=== PATIENT | male | born 1960 | race Caucasian/White ===

== ENCOUNTER 2023-04-02 06:48 | Outpatient (REF) | payer BC, SELFPAY ==
[2023-04-02 11:21] LABS: MANUAL DIFF FLAG NO
[2023-04-02 11:47] LABS: Basophils Absolute Auto 0.1 X10*3/uL (0.0-0.2); Basophils Percent Auto 1.2 % (0-2); Eosinophils Absolute Auto 0.1 X10*3/uL (0.0-0.4); Eosinophils Percent Auto 2.3 % (0-4); Hematocrit 42.4 % (42.0-52.0); Imm Gran Abs Auto 0.01 X10*3/uL (0.00-0.03); Imm Gran Pct Auto 0.2 % (0.0-0.4); Lymphocytes Absolute Auto 1.9 X10*3/uL (1.2-4.9); Lymphocytes Percent Auto 32.8 % (20-40); Mean Platelet Volume 9.3 fL (9.4-12.4); Monocytes Absolute Auto 0.5 X10*3/uL (0.1-1.2); Neutrophils Absolute Auto 3.2 x10*3/uL (2.0-8.3); Neutrophils Percent Auto 55.5 % (45-73); Platelet Count 227 X10*3/uL (160-400); Red Blood Count 4.66 X10*6/uL (4.60-5.80); Red Cell Distribution Width 13.2 % (11.0-16.0); White Blood Count 5.7 X10*3/uL (4.8-10.8)
[2023-04-02 11:55] LABS: Anion Gap 10 (12-20); Blood Urea Nitrogen 16 mg/dL (9-16); Carbon Dioxide 25 mmol/L (22-29); Chloride 108 mmol/L (96-108); Cholesterol 215 mg/dL (<200); Estimated Glomerular Filt Rate > 60; Glucose Fasting 100 mg/dL (60-99); HDL Cholesterol 37 mg/dL (>40); LDL Cholesterol Calculated 135 mg/dL (<100); Potassium 3.9 mmol/L (3.3-5.1); Sodium 139 mmol/L (135-145); Triglycerides 217 mg/dL (<150)
[2023-04-02 12:23] LABS: Prostate Specific Antigen 0.75 ng/mL (<0.05-4.0)
== END 2023-04-02 06:49 | disposition home or self-care (01) ==
LOC: HO.HMGCLDS 06:48
PROVIDERS: PCP Internal Medicine; Visit Provider Internal Medicine
DX: R53.83 Other fatigue (principal); E78.5 Hyperlipidemia, unspecified; Z12.5 Encounter for screening for malignant neoplasm of prostate
CPT/HCPCS: 36415; 80051; 80061; 82565; 82947; 84153; 84520; 85025

== ENCOUNTER 2023-08-13 08:12 | Outpatient (AMB) | payer BC, SELFPAY ==
--- NOTE | 2023-08-13 08:26 | MHC.OFFVIS ---
Intake Vital Signs 08/13/23 08:30 Height 6 ft 3 in Weight 335 lb 1.642 oz BMI 41.9 BP 135/74 Blood Pressure Location Lt brachial Position Sitting Pulse 57 Intake Visit Reasons: Colonoscopy Screening Intake Note: Raymundo presents in the office as a colonoscopy screening. CC: He states that he is just due for a colonoscopy and not having any concerns. Allergies No Known Allergies Allergy (Verified 08/13/23 08:30) Medication List - Last Reconciled 08/13/23 by Akilah Regan PA-C betamethasone, augmented 0.05 % topical BID PRN famotidine 40 mg PO DAILY flecainide 50 mg PO BID hydrocortisone-iodoquinol 1-1 % appl topical BID PRN metoprolol tartrate 25 mg PO BID naproxen 500 mg PO BID HPI HPI Comments History of Present Illness Details A 62 y/o male AFIB- referred for screening colonoscopy- seen by ENT- dx acid reflux- cardioversion x 3- 2 years ago- has appointment cardiology this month-he has recently relocated from [facility]- He does not feel rapid heartbeat-of recent-however anxious for cardiology consult. He does not drink alcohol, has no issues with his bowel Appetite is good, he does get acid reflux, taking famotidine, prefers not to change medications at this time Has no nausea, vomiting, hematemesis, hematochezia, headaches, dizziness, shortness of breath, chest pain fever chills PFSH Medical History (Updated 08/13/23 @ 11:33 by Akilah Regan PA-C) Hx of basal cell carcinoma Surgical History Hx of knee surgery Hx of carpal tunnel repair Hx of rectal sphincterotomy Hx of colonoscopy Family History Paternal Uncle Colon cancer Father Prostate cancer Social History (Updated 08/13/23 @ 10:46 by Akilah Regan PA-C) Household Members Other:: - adult children Alcohol intake: former Current occupational status: employed Current occupation: [employer] [place] Review of Systems Const All systems reviewed & are unremarkable except as noted in HPI and below ENT Denies dysphagia Card Denies chest pain and Denies dyspnea Resp Denies dyspnea GI Denies abdominal pain, Denies hematochezia, Denies dysphagia, Reports heartburn, Denies nausea and Denies vomiting Physical Exam Vital Signs: Last Vital Signs Pulse 57 08/13/23 08:30 BP 135/74 08/13/23 08:30 BMI result Body Mass Index 41.9 Const General: cooperative, healthy appearing, comfortable and no acute distress Nutritional Appearance: overweight Orientation/consciousness: patient oriented x3 Limitations: no limitations Eyes Sclerae: sclerae normal Resp Effort & Inspection: normal respiratory effort and able to speak in complete sentences Auscultation: clear to auscultation bilaterally, no rales, no rhonchi and no wheezes Cardio Rate: regular rate (Nov) Rhythm: regular rhythm Heart sounds: S1 normal heart sound present and S2 normal heart sound present GI Palpation (GI): Soft to palpation and nontender Auscultation: normal bowel sounds Skin General skin exam: no rashes or lesions noted Neuro General: patient oriented x3 Extrem General: Yes full ROM Psych Appearance: grossly normal and well kempt Mental Status: mental status grossly normal Speech and movement: Normal speech and movement present Affect: normal affect Attitude: cooperative Thought process: Normal thought process present Thought content: Normal thought content present Insight: Good insight present (Psych) Judgement: Good judgement present (Psych) Assessment & Plan Assessment & Plan (1) Afib: Comment: Relocated to [place] has not been seen yet by Cardiology, seeing cardiology- end of month Code(s): I48.91 - Unspecified atrial fibrillation Plan: Cardiology history unclear-will await input (2) Encounter for screening colonoscopy: Code(s): Z12.11 - Encounter for screening for malignant neoplasm of colon Plan: Due for screening Colonoscopy- MG prep anersthesia/Cardiology authorized- AFIB (3) Acid reflux: Comment: Fairly new onset acid reflux-warrants further evaluation Code(s): K21.9 - Gastro-esophageal reflux disease without esophagitis Plan: EGD as well as screening colonoscopy Discussed procedures, risk, need for escort Plan EGD/Colonoscopy- bariatric bed-non urgent MG prep anesthesia/Cardiology authorized- AFIB-? meds Orders: Orders EGD/[place] Combo - GI Use Only Today K21.9 - Gastro-esophageal reflux disease without esophagitis, Z12.11 - Encounter for screening for malignant neoplasm of colon Medications: New bisacodyl (Dulcolax (bisacodyl)) Day before procedure, prep day Take 4 tablets by mouth upon awakening followed by large glass of water 20 mg (4 x 5 mg) PO ONCE 1 day 4 tabs 0RF colonoscopy prep Z12.11 - Encounter for screening for malignant neoplasm of colon polyethylene glycol 3350 (Miralax) Take as directed by mouth the day before your procedure. 238 grams PO ONCE 1 day PRN 238 grams 0RF laxative effect Patient Instructions: A very pleasant 62-year-old Gent AFib awaiting Cardiology consult due to relocation New onset acid reflux, EGD/Colonoscopy- we input from Cardiology being seen end of this month MG prep anesthesia/Cardiology authorized- AFIB-? meds He is aware to report any change in health status or medications No major barriers to understanding were identified This no is constructed using voice recognition software. While every effort has been made to ensure accuracy, metal roofer errors may be included Coding Level of Care Code New Pt Level 4 (81874) Diagnoses Afib I48.91 Encounter for screening colonoscopy Z12.11 Acid reflux K21.9 Time Spent (min) 40
[2023-08-13 08:30] VITALS: BP 135/74; PULSE 57; BMI 41.9
== END 2023-08-13 09:18 | disposition home or self-care (01) ==
PROVIDERS: PCP Internal Medicine; Referring Provider Internal Medicine; Visit Provider Physician Assistant
DX: I48.91 Unspecified atrial fibrillation (principal); Z12.11 Encounter for screening for malignant neoplasm of colon; K21.9 Gastro-esophageal reflux disease without esophagitis
CPT/HCPCS: 99204

== ENCOUNTER → 2023-08-13 08:12 | Outpatient (BNVA) | payer BC, SELFPAY | PROVIDERS: PCP Internal Medicine; Visit Provider Physician Assistant ==

== ENCOUNTER 2023-09-01 08:28 | Outpatient (AMB) | payer BC, SELFPAY ==
--- NOTE | 2023-09-01 08:58 | MHC.OFFVIS ---
Intake Vital Signs 09/01/23 08:59 Height 6 ft 3 in Weight 332 lb 14.368 oz BMI 41.6 BP 120/78 Blood Pressure Location Lt brachial Position Sitting Pulse 55 Intake Visit Reasons: NPV/HTN/AFIB/W. Mugg Intake Note: New patient Afib almost 30 year 1st time had it 2021 was the last afib (in [facility]) is aware when in afib Map And Chart Mounter Required: No Allergies No Known Allergies Allergy (Verified 08/13/23 08:30) Medication List - Last Reconciled 09/01/23 by Edwin Rodriguez MD betamethasone, augmented 0.05 % topical BID PRN famotidine 40 mg PO DAILY flecainide 50 mg PO BID metoprolol tartrate 25 mg PO BID naproxen 500 mg PO BID PRN polyethylene glycol 3350 (Miralax) 238 grams PO ONCE PRN 1 day HPI HPI Comments History of Present Illness Details Thank you for referring Raymundo in cardiology consultation today for management of atrial fibrillation. 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 He said he has longstanding history of atrial fibrillation for about 30 years getting about episodes of atrial fibrillation every 3-5 years without any clear trigger factors. Managed and would convert back to sinus rhythm. He would have short stents with blood thinners after age episode. In July 31 he had COVID and subsequently went to the hospital and was noted to have atrial fibrillation and discharged home after few days. However few days later he had recurrent atrial fibrillation since then he has been started on flecainide therapy and metoprolol therapy and has done well. He has had no recurrent episodes since then. He was treated with blood tennis for about 6 months and is been off anticoagulation now. His CHADSVASc score is 0. He has no history of heart failure, diabetes, hypertension, prior stroke or embolic events. He has been told about possible sleep apnea in the past but has not had any workup. He said he does have issues with weight and is trying to lose weight now. The last 2 weeks he has dropped 10 lb. He denies any lightheadedness, syncope. Denies any exertional chest pain, shortness of breath, orthopnea, PND, leg edema. [facility] Medical History Paroxysmal atrial fibrillation Afib Hx of basal cell carcinoma Surgical History Hx of knee surgery Hx of carpal tunnel repair Hx of rectal sphincterotomy Hx of colonoscopy Family History Paternal Uncle Colon cancer Father Prostate cancer Social History Household Members Other:: - adult children Alcohol intake: former Current occupational status: employed Current occupation: [employer] Review of Systems Const Denies chills, Denies daytime sleepiness, Denies fatigue, Denies fever(s), Denies frequent falls, Denies poor appetite, Denies snoring, Denies stops breathing during sleep, Denies weakness, Denies weight gain and Denies weight loss Eyes Denies loss of vision ENT Denies dizziness and Denies hearing loss Card Denies chest pain, Denies claudication, Denies leg edema, Denies lightheadedness, Denies palpitations, Denies dyspnea, Denies dyspnea on exertion and Denies orthopnea Resp Denies cough, Denies excessive phlegm production, Denies dyspnea, Denies dyspnea on exertion, Denies snoring and Denies wheezing GI Denies abdominal pain, Denies hematochezia, Denies change in bowel habits, Denies nausea and Denies vomiting Denies dysuria and Denies urinary frequency Musc Denies arthralgias, Denies muscle weakness, Denies numbness and Denies other (frequent falls) Skin/Breast Denies nail changes and Denies rash Neuro Denies Abnormal speech present, Denies dizziness, Denies frequent falls, Denies loss of vision, Denies memory loss, Denies numbness and Denies weakness Psych Denies depression and Denies memory loss Endo Denies fatigue and Denies palpitations Russell/Lymph Reports easy bruising and Reports other (anemia) Aller/Immun Denies wheezing Physical Exam Vital Signs: Last Vital Signs Pulse 55 09/01/23 08:59 BP 120/78 09/01/23 08:59 BMI result Body Mass Index 41.6 Const General: cooperative, comfortable, no acute distress, alert, awake and Physically active Nutritional Appearance: obese Orientation/consciousness: patient oriented x3 Limitations: no limitations HEENT Head: Yes normocephalic and Yes atraumatic Neck Neck: Yes trachea midline, Yes supple and Yes no JVD Resp Effort & Inspection: normal respiratory effort Auscultation: clear to auscultation bilaterally Cardio Jugular venous distension: no JVD Palpation: normal PMI Rate: regular rate Rhythm: regular rhythm Heart sounds: S1 normal heart sound present, S2 normal heart sound present, no click, no gallops, no murmurs and no rubs GI Inspection: Yes obesity Auscultation: normal bowel sounds Skin General skin exam: no rashes or lesions noted Neuro General: patient oriented x3 and no focal motor deficits Speech: No Abnormal speech present Extrem General: Yes no clubbing, cyanosis or edema Psych Appearance: grossly normal Office Procedures EKG Details: EKG shows sinus bradycardia with first-degree AV block otherwise normal EKG with normal axis and normal intervals 66130-[id number], Complete Assessment & Plan Assessment & Plan (1) Paroxysmal atrial fibrillation: Comment: Has been cardioverted 3-4 times in the past Code(s): I48.0 - Paroxysmal atrial fibrillation Plan: Highly symptomatic paroxysmal atrial fibrillation, longstanding with intermittent episodes every few years. Currently being maintained with antiarrhythmic with flecainide and metoprolol. He has no symptoms suggestive of obstructive coronary artery disease. 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 We discussed about pathophysiology of atrial fibrillation management. We discussed about rhythm control versus rate control. Given that he is done well with rhythm control approach will continue pursue rhythm control approach. Various treatment options were discussed. We also discussed about pill in the pocket approach if he has recurrent atrial fibrillation to take an additional 150 mg of flecainide. Always require a rate lowering medication with flecainide therapy and will continue metoprolol. CHADSVASc score of 0 and he does not require anticoagulation therapy. Will obtain an echocardiogram to assess for left ventricular systolic function, size as well as hypertrophy of the left ventricular wall as well as biatrial chamber enlargement or valvular function. This test will be scheduled in near future. We discussed about risk factor modification with continued aggressive weight loss program as well considering workup for sleep apnea. He understands and agrees. Will follow up in the clinic in 6 months for EKG and in 1 year with me. Orders: Orders CA echo transthoracic complete Today I48.0 - Paroxysmal atrial fibrillation Coding Level of Care Code New Pt Level 4 (61197) Diagnoses Paroxysmal atrial fibrillation I48.0 CPT Codes EKG - CPT: 32146-Alkbdizzkyngkatem, Complete ([id number])
[2023-09-01 08:59] VITALS: BP 120/78; PULSE 55; BMI 41.6
== END 2023-09-01 09:40 | disposition home or self-care (01) ==
PROVIDERS: PCP Internal Medicine; Visit Provider Internal Medicine Cardiovascular Disease
DX: I48.0 Paroxysmal atrial fibrillation (principal)
CPT/HCPCS: 93010; 99204

== ENCOUNTER → 2023-09-01 08:28 | Outpatient (BNVA) | payer BC, SELFPAY | PROVIDERS: PCP Internal Medicine; Visit Provider Internal Medicine Cardiovascular Disease | DX: I48.0 Paroxysmal atrial fibrillation (principal) | CPT/HCPCS: 93005 ==

== ENCOUNTER → 2023-10-13 14:57 | Outpatient (REF) | payer BC, SELFPAY ==
--- NOTE | 2023-10-13 15:11 | CA_ITS ---
Transthoracic Echocardiogram Patient (Last, First, Middle): Raymundo Fields P Gender: Male Date of : 1960 Age: 63 Procedure Date: 10/13/2023 Procedure Type: Transthoracic Echocardiogram Location: OP Height: 190.5 cm Weight: 140.62 kg BSA: 2.64 m2 Heart Rate: bpm BP: 110 / 70 mmHg Cafeteria Team Leader: BARBER Referring MD: Edwin Rodriguez MD Symptoms: I48.0 - Paroxysmal atrial fibrillation Study Quality: Adequate ECG Rhythm: Sinus Conclusions: - The left ventricular systolic function is normal. The calculated ejection fraction is 62% by biplane method. - The left atrium is mildly dilated. The right atrium is moderately dilated. - No obvious valvular pathology seen on this study. - There is mild dilatation of the ascending aorta measuring 4.10 cm. Findings Left Ventricle Normal left ventricular cavity size. There is mildly increased left ventricular wall thickness. The left ventricular systolic function is normal. The calculated ejection fraction is 62% by biplane method. There is no evidence of regional wall motion abnormalities. Diastolic function is normal for age. LV peak GLS -24.1%. Right Ventricle Mildly increased right ventricular cavity size. There is normal right ventricular systolic function. Atria The left atrium is mildly dilated. The right atrium is moderately dilated. Aortic Valve There is a normal trileaflet aortic valve. There is no aortic valve stenosis. Trace to mild aortic regurgitation. Mitral Valve The mitral valve appears normal. There is no mitral valve regurgitation. There is no mitral valve stenosis. Pulmonic Valve The pulmonic valve is likely normal. Tricuspid Valve There is trace tricuspid valve regurgitation. There is no evidence of pulmonary hypertension. Great Vessels The aortic arch is normal in size. There is mild dilatation of the ascending aorta measuring 4.10 cm. Venous The inferior vena cava is normal in size and collapses greater than 50% with inspiration. Pericardium/Pleural There is no evidence of pericardial effusion. Prior Study Comparison No prior study available for comparison. Recommendations, Care & Conclusions No obvious valvular pathology seen on this study. Measurements 2D Linear Measurements IVSd: 1.12 0.6-0.9/0.6-1.0 cm LVIDd: 6.21 3.9-5.3/4.2-5.9 cm LVIDd Index: 2.35 2.4-3.2/2.2-3.1 cm/m2 LVIDs: 3.83 2.0-3.6 cm LVPWd: 1.06 0.7-1.1 cm LA Diam: 4.00 2.7-3.8/3.0-4.0 cm LAIDs Index: 1.52 1.5-2.3 cm/m2 LV Mass: 365.15 67-162/88-224 g LV Mass Index: 138.31 43-95/49-115 g/m2 LVOT Diam: 2.50 3.0+(-)1.3 cm RVOT Diam: 16.00 1.7-2.3 cm 2D Systolic Function EF 4C: 63.80 >55% EF 2C: 60.40 >55% EF BiP: 61.80 >55% Mitral Valve MV Pk E: 0.89 MV PK A: 0.71 MV Decel Time: 240.00 E/A: 1.30 E'Lateral: 11.50 E'Medial: 7.51 E/E' Med: 11.80 E/E' Lat: 7.70 PHT: 70.00 MVA PHT: 3.14 Decel Orange: 3.70 Aortic Valve AoV Pk Daniel: 1.87 AoV Mn Daniel: 1.17 AoV VTI: 0.49 AoV Pk Grad: 14.00 Aov Mn Grad: 7.00 REMEDIOS Cont.VTI: 3.74 AI Pk Daniel: 3.98 AI Orange: 1.65 LVOT LVOT Pk Daniel: 1.54 LVOT Mn Daniel: 0.92 LVOT VTI: 0.37 LVOT Pk Grad: 9.00 LVOT Mn Grad: 4.00 LVOT Diam: 2.50 LVOT Area: 4.91 Diastolic Function MV Pk E: 0.89 MV Pk A: 0.71 E/A: 1.30 E'Medial: 7.51 E/E' Med: 11.80 E' Laterial: 11.50 E/E' Lat: 7.70 Right Ventricle TAPSE (mm): 35.00 TVS' Daniel: 19.00 Tricuspid Valve TR Pk Daniel: 2.00 RVOT: 16.00 RA Press: 3.00 RVSP: 19.00 Great Vessels Aorta Ao Asc: 4.10 2.1-3.4 cm Ao Arch: 3.50 Updated in Other Vendor System with Status of Final Bo Saleh MD electronically signed on 10/14/2023 7:52:45 AM with status of Final
== END ==
LOC: HO.CARD 14:57
PROVIDERS: PCP Internal Medicine; Visit Provider Internal Medicine Cardiovascular Disease
DX: I48.0 Paroxysmal atrial fibrillation (principal)
CPT/HCPCS: 93306; 93356

== ENCOUNTER → 2023-10-13 15:11 | Outpatient (BNV) | payer BC, SELFPAY | PROVIDERS: PCP Internal Medicine; Visit Provider Internal Medicine | DX: I48.0 Paroxysmal atrial fibrillation (principal) | CPT/HCPCS: 93306 ==

== ENCOUNTER 2023-12-04 15:22 | Outpatient (REF) | payer BC, SELFPAY ==
--- NOTE | ~2023-12-04 | US_ITS ---
EXAMINATION: US VENOUS ULTRASOUND WITH DOPPLER LOWER EXTREMITY, RIGHT CLINICAL INFORMATION: Right leg pain and swelling. COMPARISON: None available. TECHNIQUE: Ultrasound of the deep veins is performed from the hip to the calf with compression sonography and color and pulse Doppler assessment. Spectral analysis with color-flow imaging is performed. FINDINGS: There is normal venous compression and respiratory variation and augmented flow. The visualized common femoral vein, superficial femoral vein, profunda femoral vein, popliteal vein, and the trifurcation region shows no evidence of deep venous thrombosis. The superficial veins seen along the anterior chaves are patent and compressible. There is fluid identified within the proximal to mid calf concerning for underlying muscle injury. If the patient's symptoms persist, followup ultrasound in 5 days 7 days might be of value to exclude proximal propagation from a non-visualized calf vein. US/US venous duplex LE RT IMPRESSION: No DVT demonstrated in the right lower extremity. Fluid identified within the proximal to mid calf concerning for underlying muscle injury. MRI could be performed for further characterization.
== END 2023-12-04 15:23 | disposition home or self-care (01) ==
LOC: HO.XRAY 15:22
PROVIDERS: PCP Internal Medicine; Visit Provider Internal Medicine
DX: R60.0 Localized edema (principal)
CPT/HCPCS: 93971

== ENCOUNTER 2023-12-10 07:44 | Day surgery (SDC) | payer BC, SELFPAY ==
[2023-12-08 12:06] VITALS: BMI 41.5
--- NOTE | 2023-12-08 15:16 | HO.ANESPROP2 ---
HPI - Anesthesia Eval Consult details Narrative: 63yo M for Upper Endoscopy and Colonoscopy Rare Afib x 30 years. Seen by [facility] cardiology 08/2023 as new patient. No indication for anticoag. EKG and echo ok. Low risk for endo per cardiology. PMF Active Problems Active Problems: All Active Problems Paroxysmal atrial fibrillation (Acute) Acid reflux (Acute) Encounter for screening colonoscopy (Acute) Past Medical History Medical History Paroxysmal atrial fibrillation Afib Hx of basal cell carcinoma Family History Family History Paternal Uncle Colon cancer Father Prostate cancer Surgical History Surgical History (Updated 12/16/23 @ 11:11 by Qian Alvarado) History of esophagogastroduodenoscopy (EGD) Hx of knee surgery Hx of carpal tunnel repair Hx of rectal sphincterotomy Hx of colonoscopy Social History Social History Household Members Other:: - adult children Alcohol intake: former Patient Tobacco Use Status: Former Tobacco user Quit Date: 2 1/2 years Second Hand Smoke Exposure: No Current occupational status: employed Current occupation: [employer] Allergies Allergy/AdvReac Type Severity Reaction Status Date / Time No Known Allergies Allergy Verified 12/10/23 08:41 Home Medications ?Medication ?Instructions ?Recorded ?Confirmed ?Last Taken ?Type famotidine 40 mg tablet 40 mg PO BEDTIME 08/13/23 12/10/23 Unknown History Exam Height,Weight and Vital Signs: Height 6 ft 3 in Weight 150.593 kg Narrative Narrative: EKG 08/2023 sinus bradycardia with first-degree AV block otherwise normal EKG with normal axis and normal intervals ECHO 10/2023 Conclusions: - The left ventricular systolic function is normal. The calculated ejection fraction is 62% by biplane method. - The left atrium is mildly dilated. The right atrium is moderately dilated. - No obvious valvular pathology seen on this study. - There is mild dilatation of the ascending aorta measuring 4.10 cm. Assessment and Plan Assessment Anesthesia Assessment: Chart Reviewed
[2023-12-10 08:33] VITALS: BP 128/70; PULSE 54; RESP 18; TEMP 36.7; O2SAT 96; BMI 39.1
[2023-12-10 08:38] VITALS: BMI 39.1
[2023-12-10] MEDS: Lactated Ringers 1,000 ML 100 ML IVCONT (08:54)
--- NOTE | 2023-12-10 09:23 | P.CONAN_ITS ---
[facility] Active Problems Active Problems: All Active Problems Paroxysmal atrial fibrillation (Acute) Acid reflux (Acute) Encounter for screening colonoscopy (Acute) Past Medical History Medical History Paroxysmal atrial fibrillation Afib Hx of basal cell carcinoma Functional capacity: independent ambulation Family History Family History Paternal Uncle Colon cancer Father Prostate cancer Surgical History Surgical History Hx of knee surgery Hx of carpal tunnel repair Hx of rectal sphincterotomy Hx of colonoscopy History of Problems with Anesthesia: No Social History Social History Household Members Other:: - adult children Alcohol intake: former Patient Tobacco Use Status: Former Tobacco user Quit Date: 2 1/2 years Second Hand Smoke Exposure: No Use of substances other than those prescribed or required for medical reasons: No Are you DNR?: No Advance Directives: No Advance Directives Information Provided: Yes Current occupational status: employed Current occupation: [employer] Allergies Allergy/AdvReac Type Severity Reaction Status Date / Time No Known Allergies Allergy Verified 12/10/23 08:41 Active Medications: Current Medications Lactated Ringer's (Lr) 1,000 mls @ 100 mls/hr IVCONT .Q10H PAWEL Last Admin: 12/10/23 08:54 Dose: 100 mls/hr Home Medications ?Medication ?Instructions ?Recorded ?Confirmed ?Last Taken ?Type famotidine 40 mg tablet 40 mg PO BEDTIME 08/13/23 12/10/23 Unknown History Exam Height,Weight and Vital Signs: Height 6 ft 3 in Weight 141.974 kg Last Vital Signs Temp 98.0 F 12/10/23 08:33 Pulse 54 12/10/23 08:33 Resp 18 12/10/23 08:33 BP 128/70 12/10/23 08:33 Pulse Ox 96 12/10/23 08:33 O2 Del Method Room Air 12/10/23 08:33 Airway Mallampati Class: II TM Dist: >3cm Neck ROM: Full Heart: RRR Lungs: CTA Assessment and Plan Assessment Anesthesia Assessment: Anesthesia Plan Discussed Final Anesthetic Review History of Problems with Anesthesia: No NPO: Yes ASA Class: III Final Preanesthetic Review: Meds/Allgs Chart Reviewed, Consent Obtained/Reviewed and Anes Risks/Benef Reviewed Patient Risk: Intermediate Procedure Risk: Low Anesthetic Plan Anesthetic Plan: MAC: Disposition: Standard PACU
--- NOTE | 2023-12-10 09:39 | MHC.SHP ---
Pre-Procedural Eval Section A - 24 Hr Update-Section A only Date of Service: 12/10/23 Section B - Complete if H&P > 30 days Chief Complaint: gerd,afib,screening Details of Present Illness: Paternal Uncle Colon cancer Relevant Family History (Specify if Yes): Yes Relevant Social History: None Present Medications: see Short Stay Collaborative assessment Medical History: Significant History (Paroxysmal atrial fibrillation Afib Hx of basal cell carcinoma) History of Previous Operations: Relevant previous surgery/procedure and date(s) (Hx of knee surgery Hx of carpal tunnel repair Hx of rectal sphincterotomy Hx of colonoscopy) Allergies: Allergies Allergy/AdvReac Type Severity Reaction Status Date / Time No Known Allergies Allergy Verified 12/10/23 08:41 Review of Systems Sugical H&P ROS: Negative: Constitution, Cardiovascular, Respiratory, Neurological, Psychiatric, Hem-Onc, Allergic/Immunologic, Gastrointestinal, Genitourinary, Musculoskeletal, Integumentary, Endocrine and Eyes/Ears/Nose/Throat Exam Surgical H&P Exam: Normal: HEENT, Normal: Heart, Normal: Lungs, Normal: Extremities, Normal: Abdomen, Normal: Skin and Normal: Neurological Plan Diagnosis/Plan: Unchanged I have reviewed the history and physical and performed a pertinent physical examination on my patient. No changes have occurred unless specified. Time Spent With Patient Time: Total time managing care of this patient today ____ minutes.
--- NOTE | 2023-12-10 10:40 | P.OP_ITS ---
Operative Note Operative Note Date of Service: 12/10/23 Narrative: Operative Information Procedure Description: EGD, Colonoscopy Indication: GERD, Colon screening Anesthesia: MAC FLEXIBLE TRANSORAL UPPER GASTROINTESTINAL ENDOSCOPY AND COLONOSCOPY PROCEDURE NOTE UPPER ENDOSCOPY Consent: Indications for the procedure and potential complications of bleeding, perforation, reaction to medications and missed diagnosis were discussed with the patient and informed consent was obtained. Instrument: Olympus GIF H 190 J mid size upper endoscope Monitoring: Vital signs and clinical assessment, continuous EKG monitoring, Pulse oximetry, Carbon Dioxide monitoring and blood pressure monitoring were done throughout the procedure. Procedure: The patient was placed in the left lateral decubitis position and pre-procedure medications were administered and a bite block was placed. The endoscope was inserted into the mouth and advanced under direct vision to the third part of duodenum. A careful inspection was made as the upper endoscope was withdrawn including a retroflexed examination of the proximal stomach; Findings and interventions are described below. Findings: Larynx:normal Esophagus: GE junction at 40 cm, diaphragm hiatus at 40 cm, some bogginess and erythema at GEJ, bx taken Stomach: erythema around pylorus with few small erosions. Biopsies were obtained. Grade 2 flap valve on retroflexed examination of the cardia. Duodenum: Normal bulb and descending duodenum, Intervention: Biopsies as noted above, COLONOSCOPY Instrument: Olympus variable stiffness ADULT scope 190L Colonoscopy Monitoring: Vital signs and clinical assessment, continuous EKG monitoring, Pulse oximetry, Carbon Dioxide monitoring and blood pressure monitoring were done throughout the procedure. Colon withdrawal time was 11 minutes. Procedure: The patient was placed in the left lateral decubitis position and pre-procedure medications were administered. After a digital rectal examination of the ano-rectum, the video colonoscope was inserted into the rectum and advanced through the colon to the cecum/TI. The colonoscope was slowly withdrawn in a retrograde panoramic fashion and the colon mucosa was carefully examined including a retroflexed view of the rectum. Findings and interventions are described below. Procedure Difficulty:moderate Findings: Terminal Ileum-normal Cecum:normal Ascending Colon: normal Transverse Colon -normal Descending Colon:normal Sigmoid Colon: normal Rectum: Retroflexion with small internal hemorrhoids, grade I Anorectum - normal Colon preparation: [place] Bowel Preparation Scale Right colon; 2 Transverse colon: 2 Left colon; 1-2 (0 = Unprepared colon segment with mucosa not seen due to solid stool that cannot be cleared. 1 = Portion of mucosa of the colon segment seen, but other areas of the colon segment not well seen due to staining, residual stool and/or opaque liquid. 2 = Minor amount of residual staining, small fragments of stool and/or opaque liquid, but mucosa of colon segment seen well. 3 = Entire mucosa of colon segment seen well with no residual staining, small fragments of stool or opaque liquid) Impression and Post Procedure Diagnosis: Endoscopy Findings: esophagitis mild gastritis Colonoscopy Findings: internal hemorrhoids fair prep Plan: Await Pathology results Repeat Colonoscopy in 5 years due to prep or earlier if clinically indicated High fiber diet leaflet avoid straining at stool, epsom salts and sitz bath, anusol supps or cream GERD precautions Above findings were reviewed with the patient and relevant handouts were provided if indicated.
[2023-12-10 10:47] VITALS: BP 131/65; PULSE 65; RESP 16; TEMP 36.5; O2SAT 96
[2023-12-10 11:02] VITALS: BP 142/63; PULSE 52; RESP 18; TEMP 36.5; O2SAT 95
--- NOTE | 2023-12-10 12:13 | HO.POSTANES ---
Post Anesthesia Evaluation Post Anesthesia Evaluation Date of Service: 12/10/23 Vital Signs: Vital Signs Temp Pulse Resp BP Pulse Ox O2 Del Method 12/10/23 11:02 97.7 F 52 18 142/63 H 95 12/10/23 10:47 97.7 F 65 16 131/65 96 Room Air 12/10/23 08:33 98.0 F 54 18 128/70 96 Room Air Anesthesia: Monitored Mental Status: Awake Pain Control: Satisfactory Nausea/Vomiting: None Hydration: Adequate Anesthesia-Related Issues: No Anes. Related Issues
== END 2023-12-10 12:04 | disposition home or self-care (01) ==
PROVIDERS: PCP Internal Medicine; Visit Provider Internal Medicine Gastroenterology
PROC: (CPT 45378; principal; 2023-12-10 11:10)
DX: Z12.11 Encounter for screening for malignant neoplasm of colon (principal); K64.0 First degree hemorrhoids; K21.00 Gastro-esophageal reflux disease with esophagitis, without bleeding; K29.70 Gastritis, unspecified, without bleeding; I48.0 Paroxysmal atrial fibrillation
CPT/HCPCS: 45378; 43239; 88305; 88313; 88342; J2704

== ENCOUNTER → 2023-12-10 07:44 | Outpatient (BNV) | payer BC, SELFPAY | PROVIDERS: PCP Internal Medicine; Visit Provider Internal Medicine Gastroenterology | DX: Z12.11 Encounter for screening for malignant neoplasm of colon (principal); K64.8 Other hemorrhoids; K21.00 Gastro-esophageal reflux disease with esophagitis, without bleeding; K29.70 Gastritis, unspecified, without bleeding | CPT/HCPCS: 43239; 45378 ==

== ENCOUNTER → 2024-03-01 09:18 | Outpatient (BNVA) | payer BC, SELFPAY | PROVIDERS: PCP Internal Medicine; Visit Provider Internal Medicine Cardiovascular Disease ==

== ENCOUNTER 2024-05-08 01:29 | Emergency (ER) | payer BC, SELFPAY ==
[2024-05-08] VITALS (8 sets, daily range): BP systolic 104–150; BP diastolic 52–80; PULSE 60–150; RESP 12–16; TEMP 36.6–36.8; O2SAT 93–95; BMI 29.9
--- NOTE | 2024-05-08 | ECG_ITS ---
Test Reason : AFIB Blood Pressure : / mmHG Vent. Rate : 078 BPM Atrial Rate : 000 BPM P-R Int : 000 ms QRS Dur : 110 ms QT Int : 384 ms P-R-T Axes : 000 -04 025 degrees QTc Int : 437 ms Atrial fibrillation Abnormal ECG No previous ECGs available Referred By: Generic ED Physician Electronically Signed By:ELIS LAUREANO
--- NOTE | ~2024-05-08 | XR_ITS ---
EXAMINATION: XR CHEST CLINICAL INFORMATION: Atrial fibrillation. COMPARISON: None available. TECHNIQUE: Frontal view of the chest was obtained. FINDINGS: The cardiomediastinal silhouette is within normal limits. There is no focal lung consolidation or evidence for significant pleural effusion. The bony structures and soft tissues are unremarkable. XR/XR chest 1V IMPRESSION: No acute cardiopulmonary process. Electronically signed by: Edgardo Villanueva MD 05/08/2024 06:42 AM EDT
[2024-05-08 01:48] LABS: MANUAL DIFF FLAG NO
[2024-05-08 01:50] LABS: Basophils Absolute Auto 0.1 X10*3/uL (0.0-0.2); Basophils Percent Auto 1.1 % (0-2); Eosinophils Absolute Auto 0.2 X10*3/uL (0.0-0.4); Eosinophils Percent Auto 2.8 % (0-4); Hematocrit 41.3 % (42.0-52.0); Imm Gran Abs Auto 0.01 X10*3/uL (0.00-0.03); Imm Gran Pct Auto 0.2 % (0.0-0.4); Lymphocytes Absolute Auto 2.3 X10*3/uL (1.2-4.9); Lymphocytes Percent Auto 36.3 % (20-40); Mean Corpuscular HGB Conc 33.9 g/dl (31.0-36.0); Mean Corpuscular Hemoglobin 30.3 pg (27.0-33.0); Mean Corpuscular Volume 89.4 fL (80.0-98.0); Mean Platelet Volume 8.7 fL (9.4-12.4); Monocytes Absolute Auto 0.6 X10*3/uL (0.1-1.2); Monocytes Percent Auto 8.5 % (2-11); Neutrophils Absolute Auto 3.3 x10*3/uL (2.0-8.3); Neutrophils Percent Auto 51.1 % (45-73); Platelet Count 219 X10*3/uL (160-400); Red Blood Count 4.62 X10*6/uL (4.60-5.80); Red Cell Distribution Width 13.1 % (11.0-16.0); White Blood Count 6.4 X10*3/uL (4.8-10.8)
[2024-05-08 02:02] LABS: Alanine Aminotransferase 25 U/L (0-40); Alkaline Phosphatase 64 U/L (39-117); Anion Gap 14 (12-20); Aspartate Amino Transferase 18 U/L (5-37); Bilirubin Total 0.1 mg/dL (0.0-1.0); Blood Urea Nitrogen 15 mg/dL (9-16); Calcium 9.6 mg/dL (8.4-10.2); Carbon Dioxide 22 mmol/L (22-29); Chloride 110 mmol/L (96-108); Creatinine Clr Calc Pharmacy 113.4; Estimated Glomerular Filt Rate > 60; Glucose Random 127 mg/dL (60-115); Potassium 3.8 mmol/L (3.3-5.1); Sodium 142 mmol/L (135-145); Total Protein 7.3 g/dL (6.5-8.0)
[2024-05-08 02:16] LABS: Troponin-I High Sensitivity < 2.7 ng/L (<3.5-35.0)
--- NOTE | 2024-05-08 05:02 | ED_ITS ---
HPI - Arrhythmia/Palpitations General Chief Complaint: Arrhythmia/Palpitations Stated Complaint: AFIB Time Seen by Provider: 05/08/24 05:02 History of Present Illness ED Provider: Colleen SIMONS narrative: The patient is a 63-year-old male who has a long history of paroxysmal atrial fibrillation. He says he was 34 years old when he 1st had problems with paroxysmal atrial fibrillation. He is on metoprolol and flecainide. He is not on anticoagulation. He says his last episode of atrial fibrillation was almost 3 years ago. He says that this morning he woke up and felt palpitations consistent with atrial fibrillation and he called 911. No significant chest pain or shortness of breath. Related Data Home Medications ?Medication ?Instructions ?Recorded ?Confirmed famotidine 40 mg tablet 40 mg PO BEDTIME 08/13/23 12/10/23 Previous Rx's ?Medication ?Instructions ?Recorded flecainide 50 mg tablet 50 mg PO BID 90 days #180 tabs 10/08/23 metoprolol tartrate 25 mg tablet 25 mg PO BID 90 days #180 tabs 10/08/23 Allergies Allergy/AdvReac Type Severity Reaction Status Date / Time No Known Allergies Allergy Verified 05/08/24 01:37 Review of Systems 2 Review of Systems: Yes all other systems are reviewed and are negative PMFSH Past Medical History Medical History (Updated 05/08/24 @ 07:46 by Ziyad Macias MD) Paroxysmal atrial fibrillation Afib Hx of basal cell carcinoma Surgical History (Updated 12/16/23 @ 11:11 by Qian Alvarado) History of esophagogastroduodenoscopy (EGD) Hx of knee surgery Hx of carpal tunnel repair Hx of rectal sphincterotomy Hx of colonoscopy Family History Family History Paternal Uncle Colon cancer Father Prostate cancer Social History Social History Household Members Other:: - adult children Alcohol intake: former Patient Tobacco Use Status: Former Tobacco user Smoked in Last 30 Days: No Second Hand Smoke Exposure: No Use of substances other than those prescribed or required for medical reasons: No Advance Directives: No Advance Directives Information Provided: No Do you have a plan to hurt others: No Plan Current occupational status: employed Current occupation: [employer] Physical Exam 2 Vital Signs: Vital Signs: Last Vital Signs Temp 98.2 F 05/08/24 05:34 Pulse 78 05/08/24 07:29 Resp 12 05/08/24 05:34 BP 107/71 05/08/24 07:29 Pulse Ox 95 05/08/24 05:34 O2 Del Method Room Air 05/08/24 05:34 BMI result Body Mass Index 29.9 Const: Other: The patient has a large 63-year-old male who was awake and alert. He does not appear in any distress. He is pleasant and cooperative. HEENT: Other: Face is symmetrical. Mucous membranes moist. Eyes: General: appearance normal, both eyes and all related structures Neck: Neck: Yes no JVD Resp: Effort & Inspection: normal respiratory effort Auscultation: clear to auscultation bilaterally Cardio: Other: The patient has an irregular rate and rhythm. He is not tachycardic however. GI: Other: Abdomen is soft and nontender Skin: Other: Skin is dry and unremarkable Neuro: Other: The patient is awake, alert, pleasant, cooperative. Cranial nerves are grossly intact. He moves his extremities normally and appropriately. He is neurologically intact. Extrem: Other: No calf swelling or tenderness Medications Administered Discontinued Medications Generic Name Dose Route Start Last Admin Trade Name Freq PRN Reason Stop Dose Admin Flecainide Acetate 300 mg 05/08/24 07:12 05/08/24 07:27 Flecainide Acetate 50 Mg Tablet PO 05/08/24 07:13 300 mg ONCE ONE Administration Metoprolol Tartrate 5 mg 05/08/24 05:09 05/08/24 05:38 Metoprolol Tartrate 5 Mg/5 Ml Vial IVPUSH 05/08/24 05:10 5 mg ONCE ONE Administration Protocol Metoprolol Tartrate 5 mg 05/08/24 06:18 05/08/24 06:43 Metoprolol Tartrate 5 Mg/5 Ml Vial IVPUSH 05/08/24 06:19 5 mg ONCE ONE Administration Protocol Metoprolol Tartrate 25 mg 05/08/24 07:14 05/08/24 07:29 Metoprolol Tartrate 25 Mg Tablet PO 05/08/24 07:15 25 mg ONCE ONE Administration Protocol Medical Decision Making Medical Decision Making MDM Narrative: The patient is a 63-year-old male with a very long history of paroxysmal atrial fibrillation. He seems to has been well-maintained in sinus rhythm on metoprolol tartrate 25 mg b.i.d. and flecainide 50 mg b.i.d.. [facility] he thought he was in AFib. His heart rate may have been rapid with paramedics but it was normal by the time he got to the hospital. The patient therefore presented in rate controlled AFib. He says he is normally in sinus rhythm. He was given 2 doses of IV metoprolol to see if this might help him convert but this did not work. I ultimately spoke with Dr. Saleh of Cardiology. We will try 300 mg of oral flecainide to see if this helps convert. He was also given his morning dose of 25 mg of oral metoprolol tartrate. I will be signing the patient out to my colleague at change of shift pending the patient's response to flecainide. Lab Data 05/08/24 01:43 05/08/24 01:43 Labs: Lab Results 05/08/24 05/08/24 Range/Units 01:43 04:38 WBC 6.4 (4.8-10.8) X10*3/uL RBC 4.62 (4.60-5.80) X10*6/uL Hgb 14.0 (14.0-18.0) g/dl Hct 41.3 L (42.0-52.0) % MCV 89.4 (80.0-98.0) fL MCH 30.3 (27.0-33.0) pg MCHC 33.9 (31.0-36.0) g/dl RDW 13.1 (11.0-16.0) % Plt Count 219 (160-400) X10*3/uL MPV 8.7 L (9.4-12.4) fL Immature Gran % (Auto) 0.2 (0.0-0.4) % Neut % (Auto) 51.1 (45-73) % Lymph % (Auto) 36.3 (20-40) % [place] % (Auto) 8.5 (2-11) % Eos % (Auto) 2.8 (0-4) % Baso % (Auto) 1.1 (0-2) % Lymph # (Auto) 2.3 (1.2-4.9) X10*3/uL [place] # (Auto) 0.6 (0.1-1.2) X10*3/uL Eos # (Auto) 0.2 (0.0-0.4) X10*3/uL Baso # (Auto) 0.1 (0.0-0.2) X10*3/uL Abs Immat Gran (auto) 0.01 (0.00-0.03) X10*3/uL Absolute Neuts (auto) 3.3 (2.0-8.3) x10*3/uL Absolute Nucleated RBC 0.000 (0.0-0.012) X10*3/uL Nucleated RBC % (auto) 0.0 (0.0-0.2) /100WBC Sodium 142 (135-145) mmol/L Potassium 3.8 (3.3-5.1) mmol/L Chloride 110 H (96-108) mmol/L Carbon Dioxide 22 (22-29) mmol/L Anion Gap 14 (12-20) BUN 15 (9-16) mg/dL Creatinine 0.91 (0.5-1.4) mg/dL Estim Creat Clear Calc 113.4 Estimated GFR > 60 Random Glucose 127 H (60-115) mg/dL Calcium 9.6 (8.4-10.2) mg/dL Total Bilirubin 0.1 (0.0-1.0) mg/dL AST 18 (5-37) U/L ALT 25 (0-40) U/L Alkaline Phosphatase 64 (39-117) U/L Troponin I High Sens < 2.7 9.1 D (<3.5-35.0) ng/L Total Protein 7.3 (6.5-8.0) g/dL Albumin 4.0 (3.5-5.0) g/dL Independent Interpretation I performed an independent interpretation of an: EKG Interpretation: EKG at 01:30 shows atrial fibrillation at 78 beats per minute. No acute ischemic changes. Discharge Plan Discharge Clinical Impression: Paroxysmal atrial fibrillation Patient Disposition: Still a Patient Prescriptions: No Action flecainide 50 mg tablet 50 mg PO BID 90 Days Qty: 180 3RF metoprolol tartrate 25 mg tablet 25 mg PO BID 90 Days Qty: 180 3RF famotidine 40 mg tablet 40 mg PO BEDTIME Print Language: [place]
[2024-05-08 05:04] LABS: Troponin-I High Sensitivity 9.1 ng/L (<3.5-35.0)
[2024-05-08] MEDS: Metoprolol Tartrate 5 MG/5 ML VIAL IVPUSH ×2 (05:38→06:43)
[2024-05-08] MEDS: Flecainide Acetate 50 MG TABLET 300 MG PO (07:27)
[2024-05-08] MEDS: Metoprolol Tartrate 25 MG TABLET PO (07:29)
--- NOTE | 2024-05-08 07:31 | PC.NURSE ---
pt seems to remain in afib - HR fluctuating between 80-100bpm. pt denies chest pain but verbalizes some mild palpitations. pt denies sob. states palpitations woke him up from his sleep where he called 911 to be able evaluated. pt medicated per provider order. effectiveness pending. plan of care ongoing. call le placed within reach.
--- NOTE | 2024-05-08 12:33 | PC.NURSE ---
pt to CT at this time.
== END 2024-05-08 13:27 | disposition home or self-care (01) ==
PROVIDERS: Emergency Medicine; Emergency Provider Emergency Medicine Emergency Medical Services; PCP Internal Medicine
DX: I48.0 Paroxysmal atrial fibrillation (principal); R00.2 Palpitations; Z79.899 Other long term (current) drug therapy
CPT/HCPCS: 36415; 71045; 80053; 84484; 85025; 93005; 96374; 96376; 99285

== ENCOUNTER 2024-05-09 12:50 | Outpatient (AMB) | payer BC, SELFPAY ==
--- NOTE | 2024-05-09 12:54 | MHC.OFFVIS ---
Vital Signs 05/09/24 12:55 Height 6 ft 3 in Weight 328 lb 7.82 oz BMI 41.1 BP 116/66 Blood Pressure Location Lt brachial Position Sitting Pulse 69 Intake Visit Reasons: f/up [facility] er Intake Note: Follow-up was in the ED with afib Casino Worker Required: No Allergies No Known Allergies Allergy (Verified 05/08/24 01:37) Medication List - Last Reconciled 05/09/24 by Edwin Rodriguez MD famotidine 40 mg PO BEDTIME flecainide 50 mg PO BID 90 days metoprolol tartrate 25 mg PO BID 90 days HPI Comments Details: Raymundo comes for follow-up. He is coming for an urgent visit had over the weekend he developed atrial fibrillation. He said he had missed his dose of flecainide and went to sleep and was tossing and turning around because of his low back pain. When he woke up he notice that he was in AFib. He then took his flecainide remained in atrial fibrillation called 911. When he came to the emergency room was in atrial fibrillation, waited 5 hours to be seen. Subsequently converted back to sinus rhythm. He was subsequently released home the following day. He is taking flecainide 50 mg b.i.d. but occasionally forgets it. Also takes metoprolol. Denies any other episodes of atrial fibrillation. Echocardiogram showed biatrial enlargement, right greater than left. He has not undergone sleep study as yet. He denies any exertional chest pain or shortness of breath. He said he try to lose weight was losing weight but then started to gain weight again. [facility] Medical History Paroxysmal atrial fibrillation Afib Hx of basal cell carcinoma Surgical History History of esophagogastroduodenoscopy (EGD) Hx of knee surgery Hx of carpal tunnel repair Hx of rectal sphincterotomy Hx of colonoscopy Family History Paternal Uncle Colon cancer Father Prostate cancer Social History Household Members Other:: - adult children Alcohol intake: former Patient Tobacco Use Status: Former Tobacco user Second Hand Smoke Exposure: No Current occupational status: employed Current occupation: [employer] Review of Systems Const Denies chills, Denies fatigue, Denies fever(s), Denies frequent falls, Denies weakness, Denies weight gain and Denies weight loss ENT Denies dizziness Card Denies chest pain, Denies leg edema, Denies lightheadedness, Denies palpitations, Denies dyspnea, Denies dyspnea on exertion, Denies orthopnea and Denies other (loss of consciousness) Resp Denies cough, Denies dyspnea and Denies dyspnea on exertion GI Denies hematochezia and Denies change in stool character Musc Denies abnormal gait, Denies muscle weakness, Denies numbness, Denies radiating pain into limb and Denies tingling Neuro Denies Abnormal speech present, Denies abnormal gait, Denies dizziness, Denies frequent falls, Denies numbness, Denies tingling and Denies weakness Endo Denies fatigue and Denies palpitations Physical Exam Vital Signs: Last Vital Signs Pulse 69 05/09/24 12:55 BP 116/66 05/09/24 12:55 BMI result Body Mass Index 41.1 Const General: cooperative, comfortable, no acute distress, alert, awake and Physically active Nutritional Appearance: obese Orientation/consciousness: patient oriented x3 Limitations: no limitations HEENT Head: Yes normocephalic and Yes atraumatic Neck Neck: Yes trachea midline, Yes supple and Yes no JVD Resp Effort & Inspection: normal respiratory effort Auscultation: clear to auscultation bilaterally Cardio Jugular venous distension: no JVD Palpation: normal PMI Rate: regular rate Rhythm: regular rhythm Heart sounds: S1 normal heart sound present, S2 normal heart sound present, no click, no gallops, no murmurs and no rubs GI Inspection: Yes obesity Auscultation: normal bowel sounds Skin General skin exam: no rashes or lesions noted Neuro General: patient oriented x3 and no focal motor deficits Speech: No Abnormal speech present Extrem General: Yes no clubbing, cyanosis or edema Psych Appearance: grossly normal Assessment & Plan Assessment & Plan (1) Paroxysmal atrial fibrillation: Comment: Has been cardioverted 3-4 times in the past Code(s): I48.0 - Paroxysmal atrial fibrillation Category: Medical Plan: Highly symptomatic paroxysmal atrial fibrillation converted in the emergency room after 300 mg flecainide. I am increasing his flecainide for maintenance dose to 100 mg b.i.d.. He can take additional 100 mg and was discussed the pill in the pocket approach rather than coming to the emergency room 1st. He understands agrees. Continue metoprolol therapy. CHADSVASc score remains 0 and there is no clear indication for oral anticoagulation therapy except for he has biatrial enlargement. I have strongly encouraged him to pursue sleep study as this could definitely slubber frame changer plan given his biatrial chamber enlargement. Also strongly discussed about weight loss program in his motivated. We discussed various strategies. He understands agrees. Follow-up EKG in 1 week. Follow up in the clinic in 6 months time, sooner p.r.n.. Thank you for allowing me to partake in his care Orders: Orders RT home sleep study Today I48.0 - Paroxysmal atrial fibrillation, R06.81 - Apnea, not elsewhere classified Medications: New flecainide 100 mg PO Q12H 60 tabs 5RF I48.0 - Paroxysmal atrial fibrillation Discontinued flecainide Discontinued Reason: Doctor's Order 50 mg PO BID 90 days 180 tabs 3RF Coding Level of Care Code Est Pt Level 4 (51428) Diagnoses Paroxysmal atrial fibrillation I48.0
[2024-05-09 12:55] VITALS: BP 116/66; PULSE 69; BMI 41.1
== END 2024-05-09 13:34 | disposition home or self-care (01) ==
PROVIDERS: PCP Internal Medicine; Visit Provider Internal Medicine Cardiovascular Disease
DX: I48.0 Paroxysmal atrial fibrillation (principal)
CPT/HCPCS: 99214

== ENCOUNTER → 2024-05-09 12:50 | Outpatient (BNVA) | payer BC, SELFPAY | PROVIDERS: PCP Internal Medicine; Visit Provider Internal Medicine Cardiovascular Disease ==

== ENCOUNTER 2024-05-16 15:49 | Outpatient (AMB) | payer BC, SELFPAY ==
--- NOTE | 2024-05-16 16:08 | AM.OFFVISNUR ---
Intake Visit Reasons: ekg Allergies No Known Allergies Allergy (Verified 05/08/24 01:37) Nursing Note pt is here for nurse visit with ekg pt is on Flecainide 100 mg PO Q12H ekg left on dr lana nava for review Office Procedures EKG [id number], Complete
== END 2024-05-16 16:10 | disposition home or self-care (01) ==
PROVIDERS: PCP Internal Medicine; Visit Provider Internal Medicine Cardiovascular Disease
DX: I48.0 Paroxysmal atrial fibrillation (principal)
CPT/HCPCS: 93010

== ENCOUNTER → 2024-05-16 15:49 | Outpatient (BNVA) | payer BC, SELFPAY | PROVIDERS: PCP Internal Medicine; Visit Provider Internal Medicine Cardiovascular Disease | DX: Z79.899 Other long term (current) drug therapy (principal) | CPT/HCPCS: 93005 ==

== ENCOUNTER 2024-08-23 10:36 | Outpatient (AMB) | payer BC, SELFPAY ==
--- NOTE | 2024-08-23 10:41 | A.OFFVIS_ITS ---
Vital Signs 08/23/24 10:42 Height 6 ft 3 in Weight 335 lb 1.642 oz BMI 41.9 BP 130/74 Blood Pressure Location Lt brachial Position Sitting Pulse 62 Intake Visit Reasons: 1 yr f/up w/ ekg Intake Note: 1 year follow-up with ekg feeling good Public Health Social Worker Required: No Allergies No Known Allergies Allergy (Verified 05/08/24 01:37) Medication List - Last Reconciled 08/23/24 by Edwin Rodriguez MD famotidine 40 mg PO BEDTIME flecainide 100 mg PO Q12H metoprolol tartrate 25 mg PO BID 90 days HPI Comments Details: Raymundo comes for follow-up. Overall he has been doing well from cardiac perspective. Denies any symptoms of prolonged palpitation irregular heartbeat. No exertional chest pain or shortness of breath. Taking all his medications. Continues to have trouble losing weight. He said his problem is dietary indiscretion. He is trying to work on it. Denies any heart failure symptoms of shortness of breath, orthopnea, PND, leg edema. No lightheadedness, syncope. [facility] Medical History Paroxysmal atrial fibrillation Afib Hx of basal cell carcinoma Surgical History History of esophagogastroduodenoscopy (EGD) Hx of knee surgery Hx of carpal tunnel repair Hx of rectal sphincterotomy Hx of colonoscopy Family History Paternal Uncle Colon cancer Father Prostate cancer Social History Household Members Other:: - adult children Alcohol intake: former Patient Tobacco Use Status: Former Tobacco user Second Hand Smoke Exposure: No Current occupational status: employed Current occupation: [employer] Review of Systems Const Denies chills, Denies fatigue, Denies fever(s), Denies frequent falls, Denies weakness, Denies weight gain and Denies weight loss ENT Denies dizziness Card Denies chest pain, Denies leg edema, Denies lightheadedness, Denies palpitations, Denies dyspnea, Denies dyspnea on exertion, Denies orthopnea and Denies other (loss of consciousness) Resp Denies cough, Denies dyspnea and Denies dyspnea on exertion GI Denies hematochezia and Denies change in stool character Musc Denies abnormal gait, Denies muscle weakness, Denies numbness, Denies radiating pain into limb and Denies tingling Neuro Denies Abnormal speech present, Denies abnormal gait, Denies dizziness, Denies frequent falls, Denies numbness, Denies tingling and Denies weakness Endo Denies fatigue and Denies palpitations Physical Exam Vital Signs: Last Vital Signs Pulse 62 08/23/24 10:42 BP 130/74 08/23/24 10:42 BMI result Body Mass Index 41.9 Const General: cooperative, comfortable, no acute distress, alert, awake and Physically active Nutritional Appearance: obese Orientation/consciousness: patient oriented x3 Limitations: no limitations HEENT Head: Yes normocephalic and Yes atraumatic Neck Neck: Yes trachea midline, Yes supple and Yes no JVD Resp Effort & Inspection: normal respiratory effort Auscultation: clear to auscultation bilaterally Cardio Jugular venous distension: no JVD Palpation: normal PMI Rate: regular rate Rhythm: regular rhythm Heart sounds: S1 normal heart sound present, S2 normal heart sound present, no click, no gallops, no murmurs and no rubs GI Inspection: Yes obesity Auscultation: normal bowel sounds Skin General skin exam: no rashes or lesions noted Neuro General: patient oriented x3 and no focal motor deficits Speech: No Abnormal speech present Extrem General: Yes no clubbing, cyanosis or edema Psych Appearance: grossly normal Office Procedures EKG Details: EKG shows normal sinus rhythm with normal EKG [id number], Complete Assessment & Plan Assessment & Plan (1) Paroxysmal atrial fibrillation: Comment: Has been cardioverted 3-4 times in the past Code(s): I48.0 - Paroxysmal atrial fibrillation Category: Medical Plan: Highly symptomatic paroxysmal atrial fibrillation doing well with rhythm control approach. Continue current rhythm control approach with flecainide and metoprolol. Discussed about management of atrial fibrillation and risk factor modification. Losing weight is associated with reduction in total burden of atrial fibrillation and also recurrence of atrial fibrillation. This was discussed with him. He is going to try harder for the same. Blood pressure is well optimized. Encouraged to continue to participate in regular physical activity. Continue current therapy. Will follow up in the clinic in 6 months for EKG in 1 year with me. Thank you for allowing me to partake in his care Coding Level of Care Code Est Pt Level 4 (03483) Complex EM visit Add On G2211 Diagnoses Paroxysmal atrial fibrillation I48.0 CPT Codes EKG - CPT: 93864-[id number], Complete ([id number])
[2024-08-23 10:42] VITALS: BP 130/74; PULSE 62; BMI 41.9
== END 2024-08-23 11:17 | disposition home or self-care (01) ==
PROVIDERS: PCP Internal Medicine; Visit Provider Internal Medicine Cardiovascular Disease
DX: I48.0 Paroxysmal atrial fibrillation (principal)
CPT/HCPCS: 93010; 99214

== ENCOUNTER → 2024-08-23 10:36 | Outpatient (BNVA) | payer BC, SELFPAY | PROVIDERS: PCP Internal Medicine; Visit Provider Internal Medicine Cardiovascular Disease | DX: I48.0 Paroxysmal atrial fibrillation (principal); Z79.899 Other long term (current) drug therapy | CPT/HCPCS: 93005 ==

== ENCOUNTER 2024-11-01 15:09 | Outpatient (AMB) | payer BC, SELFPAY ==
[2024-11-01 15:10] VITALS: BP 138/82; PULSE 80; RESP 18; TEMP 36.6; O2SAT 96; BMI 42.5
--- NOTE | 2024-11-01 15:10 | A.OFFPC_ITS ---
Vital Signs 11/01/24 15:10 Height 6 ft 3 in Weight 340 lb BMI 42.5 BP 138/82 Respiration 18 Pulse 80 Pulse Source Pulse Oximeter Temp 97.8 F Temp Source Temporal Artery Scan Pulse Oximetry (%) 96 Oxygen Delivery Method Room Air Intake Visit Reasons: f/u GERD It Lead Required: No Accompanied by: Self / Same As Patient Allergies demeral Allergy (Mild, Uncoded 11/01/24 15:14) Itching Tobacco use date assessed: 11/01/24 Dental Screening Dental Screen Date: 11/01/24 Did you have a dental visit in the last 12 months?: Yes Did you have a dental problem in the last 6 months where you did not have access to dental care?: No PFSH Medical History (Updated 11/01/24 @ 15:41 by Bruce Ray MD) Obesity (BMI 35.0-39.9 without comorbidity) Paroxysmal atrial fibrillation Afib Hx of basal cell carcinoma Surgical History History of esophagogastroduodenoscopy (EGD) Hx of knee surgery Hx of carpal tunnel repair Hx of rectal sphincterotomy Hx of colonoscopy Family History Paternal Uncle Colon cancer Father Prostate cancer Social History Household Members Other:: - adult children Housing: House Alcohol intake: former Patient Tobacco Use Status: Former Tobacco user Second Hand Smoke Exposure: No service: No Current occupational status: employed Current occupation: [employer] Cognitive needs: No Hearing needs: No Vision needs: Yes (rx glasses) Questionnaire PHQ-9 Over the last 2 weeks, how often have you been bothered by any of the following problems? 1. Little interest or pleasure in doing things: not at all 2. Feeling down, depressed, or hopeless: not at all 3. Trouble falling or staying asleep, or sleeping too much: not at all 4. Feeling tired or having little energy: not at all 5. Poor appetite or overeating: not at all 6. Feeling bad about yourself - or that you are a failure or have let yourself or your family down: not at all 7. Trouble concentrating on things, such as reading the newspaper or watching television: not at all 8. Moving or speaking so slowly that other people could have noticed. Or the opposite - being so fidgety or restless that you have been moving around a lot more than usual: not at all 9. Thoughts that you would be better off or of hurting yourself in some way: not at all Total score: 0 Source: Developed by Drs. Shekhar Gilmore, Tiffany Elliott, Flakito Guzman and colleagues, with an educational patric from Sara Campbell. Thrive Questionnaire Date Thrive assessed: 11/01/24 I am a: Patient What is your living situation today?: I have a steady place to live Within the past 12 months, did the food you bought not last and you didn't have the money to get more?: Never true Within the past 12 months, did you worry whether your food would run out before you got money to buy more?: Never true Do you have trouble paying for medicines?: No Do you have trouble getting transportation to medical appointments?: No Do you have trouble paying your heating and electricity bill?: No Do you have trouble taking care of your child, family member or friend?: No Do you have trouble with day-to-day activities such as bathing, preparing meals, shopping, managing finances, etc.?: No Are you currently unemployed and looking for a job?: No Are you interested in more education?: No Please select the resources that you would like help with: None THRIVE Score: 0 AUDIT C Alcohol Use Questionnaire (AUDIT-C) 1. How often do you have a drink containing alcohol?: Never 3. How often do you have six or more drinks on one occasion?: Never Total Score: 0 URI-7 AMB Questionnaire URI-7 Date URI - 7 assessed: 11/01/24 Feeling nervous, anxious, or on edge: 0 = Not at all Not being able to stop or control worryin = Not at all Worrying too much about different things: 0 = Not at all Trouble relaxin = Not at all Being so restless that it is hard to sit still: 0 = Not at all Becoming easily annoyed or irritable: 0 = Not at all Feeling afraid as if something awful might happen: 0 = Not at all Total URI-7 score (0-4 normal; 5-9 mild; 10-14 moderate; 15-21 severe): 0 Source: Developed by Drs. Shekhar Gilmore, Tiffany Elliott, Flakito Guzman and colleagues, with an educational patric from Sara Campbell. Physical exam (Primary Care) Vital Signs: Last Vital Signs Temp 97.8 F 11/01/24 15:10 Pulse 80 11/01/24 15:10 Resp 18 11/01/24 15:10 BP 138/82 11/01/24 15:10 Pulse Ox 96 11/01/24 15:10 Oxygen Delivery Method Room Air 11/01/24 15:10 BMI result Body Mass Index 42.5 Tobacco/Smoking Status: Tobacco use Status Tobacco use date assessed 11/01/24 11/01/24 15:18 Patient Tobacco Use Status Former Tobacco user 11/01/24 15:18 PHQ-9: PHQ-9 Score PHQ-9: Total score 0 11/01/24 15:18 Thrive Assessment: Date of Thrive Assessment Date Thrive assessed 11/01/24 11/01/24 15:18 Coding Level of Care Code New Pt Level 4 (00810) Complex EM visit Add On G2211 Diagnoses Paroxysmal atrial fibrillation I48.0 Obesity (BMI 35.0-39.9 without comorbidity) E66.9 Assessment & Plan Assessment & Plan (1) Paroxysmal atrial fibrillation: Comment: Has been cardioverted 3-4 times in the past Code(s): I48.0 - Paroxysmal atrial fibrillation Category: Medical Plan: On rate control. No anticoagualtion. Currently in sinus rhythm. (2) Obesity (BMI 35.0-39.9 without comorbidity): Code(s): E66.9 - Obesity, unspecified Category: Medical Plan: Counselling on the importance of diet and exercise done. Plan History of Present Illness The patient is a 64-year-old male presenting with obesity management and cardiology follow-up for atrial fibrillation. He has a history of atrial fibrillation beginning around age 34, with occurrences every four to five years until the last episode six months prior. Current management with Flecainide has been effective. The patient expresses concern about unintended weight gain, attributed to flecainide, though literature does not commonly associate flecainide with significant weight gain. He reported longstanding stability in weight (280-300 pounds), but recent readings indicate he is now 340 pounds despite no major changes in lifestyle or eating habits. This prompts consideration of dietary caloric intake as a primary focus for weight management. 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 - Housing: Owns a home bought outright with his , with no mortgage. - Consumes: No tobacco or alcohol; quit smoking three years ago and alcohol consumption ceased 18 years ago. - Marital Status: , with three children from each spouse?s prior marriages; all children are independent. - Diet & Lifestyle: Attempts to consume lower calories though struggles with ice cream and sweets; experienced framer. - Location: Resident of an area [place] of [place], now in a new home. Review of Systems - Cardiovascular: Reports effective management of atrial fibrillation with Flecainide. - Musculoskeletal: Reports knee pain due to bone spurs. - Endocrine: Concerns about recent weight gain. Physical Exam General: Appearance normal, both eyes and all related structures Nutritional Appearance: Well nourished, but patient reports weight gain concerns Orientation/consciousness: Patient oriented x3 Limitations: No limitations, but patient reports knee pain due to bone spurs Head: Normal to inspection Neck: Normal visual inspection Chest: Normal palpation of entire chest wall Respiratory: Normal respiratory effort Neurology: Patient oriented x3 Results Plan For obesity, dietary modifications and caloric intake reduction are advised, targeting daily calorie levels of 5250-3085, focusing on lean proteins and vegetables while limiting sugars and carbohydrates. Continuation of Flecainide for atrial fibrillation control is recommended, with monitoring for efficacy and any side effects. Blood pressure monitoring will be ongoing, along with the management of cholesterol levels through upcoming blood work. The goal for weight loss is 4 pounds per month, and supportive lifestyle counseling has been given. Musculoskeletal pain related to bone spurs should be assessed further, with an orthopedic consultation if required, to determine the need for further intervention. Patient was informed and verbally consented to the use of an ambient scribe for clinic note documentation during this visit. Discussion Notes I discussed the weight management strategy with the patient, emphasizing the importance of dietary changes given the lack of evidence for flecainide-induced weight gain. The necessity of lowering caloric intake was highlighted, with specific recommendations provided regarding food types and portion sizes. I outlined the management plan for atrial fibrillation, with current Flecainide dosing to continue. The possibility of fluid retention was mentioned, but weight gain from Flecainide is unlikely, and thus a dietary focus is recommended. Blood work will be done to check cholesterol and overall cardiovascular risk, given the slightly elevated in-office blood pressure. I encouraged establishing a re alistic weight loss goal and to remain active within his physical capabilities, providing guidance on lifestyle changes and the importance of such modifications for long-term health maintenance. Patient Instructions - Follow a diet focusing on high protein and vegetables while limiting sugars and carbohydrates. - Avoid eating after 6:00 PM and practice intermittent fasting between 6 PM and 6 AM. - Limit sweet and high-calorie foods to twice a week. - Continue current medication regime as prescribed for atrial fibrillation. - Monitor blood pressure regularly and attend follow-up for bloodwork results. - Aim for gradual weight loss of up to 4 pounds monthly through these modifications. - Consult orthopedic services regarding musculoskeletal pain if discomfort persists.
== END 2024-11-01 15:42 | disposition home or self-care (01) ==
LOC: HO.HMCSH 15:09
PROVIDERS: PCP Internal Medicine; Visit Provider Internal Medicine
DX: I48.0 Paroxysmal atrial fibrillation (principal); E66.9 Obesity, unspecified

== ENCOUNTER → 2024-11-01 15:09 | Outpatient (BNVA) | payer BC, SELFPAY | PROVIDERS: PCP Internal Medicine; Visit Provider Internal Medicine ==

== ENCOUNTER 2024-11-18 15:56 | Emergency (ER) | payer BC, SELFPAY ==
--- NOTE | ~2024-11-18 | XR_ITS ---
EXAMINATION: XR KNEE, RIGHT CLINICAL INFORMATION: pain x1mo, walk down stairs pop , now severe pain COMPARISON: None available. TECHNIQUE: Four views of the right knee. FINDINGS: No fracture or joint effusion. Alignment is anatomic. Joint spaces are maintained. There is soft tissue enthesophyte along the anterior superior patella. No abnormal soft tissue calcification. XR/XR knee RT 4V IMPRESSION: Mild DJD. Electronically signed by: Alfredo Salazar MD 11/18/2024 04:25 PM EDT
--- NOTE | ~2024-11-18 | US_ITS ---
CLINICAL HISTORY: R knee calf pain Venous duplex ultrasound right lower extremity COMPARISON: US veins right lower extremity dated 12/04/23 at 15:34 EDT FINDINGS: The visualized deep veins are fully compressible with normal Doppler color flow and spectral tracings. Right popliteal cyst measuring 4.9 x 1.2 x 3.2 cm. No surrounding hyperemia. IMPRESSION: 1. Negative for right lower extremity deep vein thrombosis. This document has been electronically signed by: Jan Saunders MD on 11/18/2024 19:14:03
[2024-11-18 15:59] VITALS: BP 136/77; PULSE 65; RESP 18; TEMP 36.8; O2SAT 96; BMI 41.1
--- NOTE | 2024-11-18 16:01 | ED.EXTPRO ---
HPI - Extremity Problem General Chief complaint: Extremity Injury, Lower Stated complaint: R knee pain Time Seen by Provider: 11/18/24 17:59 Source: patient Mode of arrival: ambulatory Limitations: no limitations History of Present Illness ED Provider: delores pineda np HPI Narrative: Patient is a 64-year-old female who presents to the emergency department for evaluation of right knee pain. States he has an appointment with Orthopedics in December of 2024 for evaluation of 1 month of right knee pain primarily worse at the end of the day though it is constant. States that the pain radiates down into the calf. He has been having ongoing pain exacerbates with ambulation. He states that today when walking down the basement stairs today he heard a louder pop than usual , and immediate increase in pain, difficulty with weight-bearing. Denies any numbness or tingling or cold sensation to the extremity. Denies any redness, warmth, rashes, lesions Related Data Home Medications ?Medication ?Instructions ?Recorded ?Confirmed famotidine 40 mg tablet 40 mg PO BEDTIME 08/13/23 08/23/24 betamethasone, augmented 0.05 % topical 11/01/24 lotion hydrocortisone 1 %-iodoquinol 1 % appl topical 11/01/24 topical cream triamcinolone acetonide 0.1 % 1 appl topical BID-TID 11/01/24 topical cream Previous Rx's ?Medication ?Instructions ?Recorded metoprolol tartrate 25 mg tablet 25 mg PO BID 90 days #180 tabs 09/19/24 flecainide 100 mg tablet 100 mg PO Q12H #60 tabs 10/25/24 Allergies Allergy/AdvReac Type Severity Reaction Status Date / Time demeral Allergy Mild Itching Uncoded 11/18/24 16:04 Review of Systems Review of Systems: Yes all other systems are reviewed and are negative PMFSH Past Medical History Attestation statement: The following information was validated with the patient. Source: old records reviewed Medical History Obesity (BMI 35.0-39.9 without comorbidity) Paroxysmal atrial fibrillation Afib Hx of basal cell carcinoma Surgical History History of esophagogastroduodenoscopy (EGD) Hx of knee surgery Hx of carpal tunnel repair Hx of rectal sphincterotomy Hx of colonoscopy Family History Family History Paternal Uncle Colon cancer Father Prostate cancer Social History Social History Household Members Other:: - adult children Housing: House Alcohol intake: former Patient Tobacco Use Status: Former Tobacco user Smoked in Last 30 Days: No Second Hand Smoke Exposure: No Use of substances other than those prescribed or required for medical reasons: No Advance Directives: No Advance Directives Information Provided: Yes service: No Current occupational status: employed Current occupation: [employer] Cognitive needs: No Hearing needs: No Vision needs: Yes (rx glasses) Physical Exam Vital Signs: Vital Signs: Last Vital Signs Temp 97.9 F 11/18/24 19:48 Pulse 71 11/18/24 19:48 Resp 20 11/18/24 19:48 BP 112/59 L 11/18/24 19:48 Pulse Ox 96 11/18/24 19:48 O2 Del Method Room Air 11/18/24 19:48 BMI result Body Mass Index 41.1 Appearance: Alert.?Oriented to person, place and time. No acute distress.?Normal affect. CVS: Heart sounds normal. Normal heart rate and rhythm.? Pulses normal.?? Respiratory: No respiratory distress.? Lung sounds clear to auscultation bilaterally?? Skin: Skin warm and dry.? Normal skin color.? Normal skin turgor.?? Extremities: No lower extremity edema.? Mild right calf tenderness upon palpation. 2+ DP/PT pulse bilaterally. No laxity on exam, no deformity to the knee. Valgus and varus stress test negative. Anterior and posterior drawer test negative. Neuro: Moves all extremities spontaneously. Sensation intact bilaterally. Ambulates with antalgic gait. Medications Administered Discontinued Medications Generic Name Dose Route Start Last Admin Trade Name Freq PRN Reason Stop Dose Admin Ibuprofen 600 mg 11/18/24 18:33 11/18/24 18:48 Ibuprofen 600 Mg Tablet PO 11/18/24 18:34 600 mg ONCE ONE Administration Medical Decision Making Medical Decision Making MDM Narrative: Patient is a 64-year-old male who presents emergency department for evaluation of acute exacerbation to ongoing right knee pain particularly over the past month. Was walking down the stairs today, felt a louder pop than usual, result in increase in pain and difficulty weight-bearing since. Has not had evaluation for this thus far as per HPI. Awaiting orthopedic evaluation in December of 2024. Extremities neurovascularly intact distally. There was no rashes or lesions to suggest cellulitis. No erythema or warmth to suggest septic joint, nontoxic in appearance. With the associated calf pain and mild tenderness upon palpation, will obtain venous duplex ultrasound to exclude DVT though I have a lower suspicion for this. Not consistent with acute arterial occlusion. XR was obtained revealing a mild DJD, no acute fracture or dislocation. Differential Diagnosis Differential Diagnoses: The differential diagnosis associated with the presentation includes Admission/Observation Consideration of admission/observation: Escalation of care including admission/observation considered Independent Interpretation I performed an independent interpretation of an: Plain X-Ray (See narrative above) Radiology Impression Discussion of test interpretation with radiology: I have reviewed the radiologist's reading. Radiologist Impression: XR/XR knee RT 4V IMPRESSION: Mild DJD. Venous duplex ultrasound right lower extremity COMPARISON: US veins right lower extremity dated 12/04/23 at 15:34 EDT FINDINGS: The visualized deep veins are fully compressible with normal Doppler color flow and spectral tracings. Right popliteal cyst measuring 4.9 x 1.2 x 3.2 cm. No surrounding hyperemia. IMPRESSION: 1. Negative for right lower extremity deep vein thrombosis. Independent Historian Clinical information obtained from an independent historian. History obtained from or confirmed by: Spouse External Record Review External record reviewed: Outpatient record Prescription Management I considered prescription management with: Pain Medication Discharge Plan Discharge Clinical Impression: Degenerative arthritis of knee Qualifiers: Laterality: right Patient Disposition: Home, Self-Care Instructions: Osteoarthritis (ED) Additional Instructions: As discussed, workup today reveals that you do have arthritis in the right knee no fracture dislocation, ultrasound did not show any evidence of a blood clot You may use the crutches as provided to help avoiding putting weight on the leg over the next few days. You may then bear weight as tolerated. Be sure to rest, apply ice for 10-15 minutes 4-6 times daily. You can take ibuprofen 200 mg, 3 tablets (600mg) every 6-8 hours as needed for pain, in addition to Tylenol 500 mg, 2 tablets (1,000mg) every 4-6 hours as needed for pain, but not to exceed 3 doses daily (3,000mg).? Follow-up with primary care doctor/Orthopedics as scheduled. You may return with new or worsening symptoms or concerns. Prescriptions: No Action metoprolol tartrate 25 mg tablet 25 mg PO BID 90 Days Qty: 180 3RF flecainide 100 mg tablet 100 mg PO Q12H Qty: 60 5RF famotidine 40 mg tablet 40 mg PO BEDTIME hydrocortisone-iodoquinol 1-1 % cream topical triamcinolone acetonide 0.1 % cream 1 appl topical BID-TID betamethasone, augmented 0.05 % lotion topical Referrals: Bruce Ray MD [Primary Care Provider] - Stand Alone Forms: Work/School Release Interventions: ED Discharge Assessment Last Done: 11/18/24 19:48 Discharge Date/Time: 11/18/24 19:49 Print Language: [place]
[2024-11-18 18:06] VITALS: BP 112/59; PULSE 71; RESP 20; TEMP 36.6; O2SAT 96
[2024-11-18] MEDS: Ibuprofen 600 MG TABLET PO (18:48)
[2024-11-18 19:48] VITALS: BP 112/59; PULSE 71; RESP 20; TEMP 36.6; O2SAT 96
== END 2024-11-18 19:49 | disposition home or self-care (01) ==
PROVIDERS: Emergency Provider Emergency Medicine Emergency Medical Services; PCP Internal Medicine
DX: M17.11 Unilateral primary osteoarthritis, right knee (principal); R60.0 Localized edema; Z87.891 Personal history of nicotine dependence
CPT/HCPCS: 73564; 93971; 99284

== ENCOUNTER → 2024-11-18 16:03 | Outpatient (BNV) | payer BC, SELFPAY | PROVIDERS: PCP Internal Medicine; Visit Provider Radiology Diagnostic Radiology | DX: M79.661 Pain in right lower leg (principal); M25.561 Pain in right knee | CPT/HCPCS: 73564; 93971 ==

== ENCOUNTER 2024-11-22 15:14 | Outpatient (AMB) | payer BC, SELFPAY ==
[2024-11-22 15:15] VITALS: BP 146/80; PULSE 68; RESP 16; TEMP 36.3; O2SAT 98; BMI 40.9
--- NOTE | 2024-11-22 15:15 | A.OFFPC_ITS ---
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 Required: No Accompanied by: Self / Same As Patient Allergies demeral Allergy (Mild, Uncoded 11/22/24 15:15) Itching Tobacco use date assessed: 11/22/24 Dental Screening Dental Screen Date: 11/01/24 COUNT INCLUDES THE [facility] Medical History Obesity (BMI 35.0-39.9 without comorbidity) Paroxysmal atrial fibrillation Afib Hx of basal cell carcinoma Surgical History History of esophagogastroduodenoscopy (EGD) Hx of knee surgery Hx of carpal tunnel repair Hx of rectal sphincterotomy Hx of colonoscopy (~12/10/23) Family History Paternal Uncle Colon cancer Father Prostate cancer Social History Household Members Other:: - adult children Housing: House Alcohol intake: former Patient Tobacco Use Status: Former Tobacco user Second Hand Smoke Exposure: No service: No Current occupational status: employed Current occupation: [employer] Cognitive needs: No Hearing needs: No Vision needs: Yes (rx glasses) Questionnaire PHQ-9 Over the last 2 weeks, how often have you been bothered by any of the following problems? 1. Little interest or pleasure in doing things: not at all 2. Feeling down, depressed, or hopeless: not at all 3. Trouble falling or staying asleep, or sleeping too much: not at all 4. Feeling tired or having little energy: not at all 5. Poor appetite or overeating: not at all 6. Feeling bad about yourself - or that you are a failure or have let yourself or your family down: not at all 7. Trouble concentrating on things, such as reading the newspaper or watching television: not at all 8. Moving or speaking so slowly that other people could have noticed. Or the opposite - being so fidgety or restless that you have been moving around a lot more than usual: not at all 9. Thoughts that you would be better off or of hurting yourself in some way: not at all Total score: 0 Source: Developed by Drs. Shekhar Gilmore, Tiffany Elliott, Flakito Guzman and colleagues, with an educational patric from [employer]. Thrive Questionnaire Date Thrive assessed: 11/01/24 I am a: Patient What is your living situation today?: I have a steady place to live Within the past 12 months, did the food you bought not last and you didn't have the money to get more?: Never true Within the past 12 months, did you worry whether your food would run out before you got money to buy more?: Never true Do you have trouble paying for medicines?: No Do you have trouble getting transportation to medical appointments?: No Do you have trouble paying your heating and electricity bill?: No Do you have trouble taking care of your child, family member or friend?: No Do you have trouble with day-to-day activities such as bathing, preparing meals, shopping, managing finances, etc.?: No Are you currently unemployed and looking for a job?: No Are you interested in more education?: No Please select the resources that you would like help with: None THRIVE Score: 0 AUDIT C Alcohol Use Questionnaire (AUDIT-C) 1. How often do you have a drink containing alcohol?: Never 3. How often do you have six or more drinks on one occasion?: Never Total Score: 0 URI-7 AMB Questionnaire URI-7 Date URI - 7 assessed: 11/01/24 Feeling nervous, anxious, or on edge: 0 = Not at all Not being able to stop or control worryin = Not at all Worrying too much about different things: 0 = Not at all Trouble relaxin = Not at all Being so restless that it is hard to sit still: 0 = Not at all Becoming easily annoyed or irritable: 0 = Not at all Feeling afraid as if something awful might happen: 0 = Not at all Total URI-7 score (0-4 normal; 5-9 mild; 10-14 moderate; 15-21 severe): 0 Source: Developed by Drs. Shekhar Gilmore, Tiffany Elliott, Flakito Guzman and colleagues, with an educational patric from [employer]. Physical exam (Primary Care) Vital Signs: Last Vital Signs Temp 97.4 F 11/22/24 15:15 Pulse 68 11/22/24 15:15 Resp 16 11/22/24 15:15 BP 146/80 H 11/22/24 15:15 Pulse Ox 98 11/22/24 15:15 Oxygen Delivery Method Room Air 11/22/24 15:15 BMI result Body Mass Index 40.9 Tobacco/Smoking Status: Tobacco use Status Tobacco use date assessed 11/22/24 11/22/24 15:18 Patient Tobacco Use Status Former Tobacco user 11/22/24 15:18 PHQ-9: PHQ-9 Score PHQ-9: Total score 0 11/22/24 15:18 Thrive Assessment: Date of Thrive Assessment Date Thrive assessed 11/01/24 11/22/24 15:18 Coding Level of Care Code Est Pt Level 4 (49564) Complex EM visit Add On G2211 Diagnoses Sprain of right knee S83.91XA Assessment & Plan Assessment & Plan (1) Sprain of right knee: Code(s): S83.91XA - Sprain of unspecified site of right knee, initial encounter Plan: Various measures to relieve pain explained. Advised rest for now, when pain stops, he should beging PT, wear a brace etc Plan History of Present Illness The patient is a 64-year-old male presenting with knee pain. The onset of pain in the right knee occurred approximately one and a half to two months ago, characterized by limping in the mornings and improvement throughout the day with activity. The patient observed significant pain and functional difficulty after an incident where his right knee produced an audible popping sound, followed by acute pain and inability to bear weight. Prior investigations included an x-ray and ultrasound, which ruled out vascular complications such as blood clots. The patient is aware of underlying osteoarthritis and bone spurs on the back of his kneecap, contributing to his symptoms. His sister, who is a therapist, suggested possible ligamentous injury, such as meniscus or ACL involvement. Orthotics relieved the discomfort in his left knee and feet, but the right knee remains significantly affected, especially with certain movements such as full extension or bending to step into the shower. Social History - Employment: Works and reports limping through his day at work but does not specify the nature of employment. - Exercise: Limited due to knee pain; struggles with weight-bearing activities. - Functional status: Describes difficulty with movement, particularly in the mornings when symptoms are most severe. 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 Review of Systems - Musculoskeletal: Reports right knee pain, limping, pain on full extension, and while lifting the leg. - Musculoskeletal: Denies use of stronger pain medications due to past history of alcoholism. - Cardiovascular: Reports significant arthritic pain exacerbating with weight- bearing activities. Physical Exam General: Cooperative and healthy appearing Nutritional Appearance: Well nourished Orientation/consciousness: Patient oriented x3 Limitations: No limitations Head: Normal to inspection General: Appearance normal, both eyes and all related structures Neck: Normal visual inspection Chest: Normal palpation of entire chest wall Respiratory: Normal respiratory effort Neurology: Patient oriented x3 Results - Imaging: Previous x-ray and ultrasound indicated no blood clots. Plan The primary approach is to manage the patient's osteoarthritis-related knee pain combined with potential ligamentous strain with conservative measures such as a knee brace to offload stress on the joint. Given the restrictions due to his alcohol history, this approach aims to alleviate symptoms while minimizing medication use. The management plan hinges on symptomatic relief while awaiting further orthopedic evaluation and is guided by continuous symptom tracking. Patient was informed and verbally consented to the use of an ambient scribe for clinic note documentation during this visit. Discussion Notes I discussed with the patient that his symptoms likely result from osteoarthritis and possibly a ligamentous injury, such as a meniscus or ACL strain, exacerbated by bone spurs. We reviewed the appropriateness of using a brace to mitigate knee load, considering his allergy and medication avoidance needs. Potential benefits, such as improved stability and pain reduction, were acknowledged, with the understanding that follow-up with orthopedics on January 06 could refine interventions. The patient consented to try a brace, and we discussed monitoring his response and attending to pain management through non-pharmacological metho ds due to his prior alcohol use history and avoiding potent analgesics. Patient Instructions - Use a knee brace to reduce stress on the knee and manage pain. - Monitor knee pain, noting any changes or worsening symptoms. - Attend the forthcoming orthopedic appointment on January 06 for further evaluation. - Avoid aggravating activities that increase knee pain. - Contact medical services if symptoms significantly worsen or in case of new alarming signs.
== END 2024-11-22 16:02 | disposition home or self-care (01) ==
LOC: HO.HMCSH 15:14
PROVIDERS: PCP Internal Medicine; Visit Provider Internal Medicine
DX: S83.91XA Sprain of unspecified site of right knee, initial encounter (principal)

== ENCOUNTER → 2024-11-22 15:14 | Outpatient (BNVA) | payer BC, SELFPAY | PROVIDERS: PCP Internal Medicine; Visit Provider Internal Medicine ==

== ENCOUNTER 2024-12-26 11:28 | Outpatient (AMB) | payer BC, SELFPAY ==
--- NOTE | 2024-12-26 11:33 | A.OFFPC_ITS ---
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 He reported having a fever from Thursday through , but he no longer experiences fever at present. During the symptomatic period, he fe lt better during the day but would develop a fever after coming home from work. 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 He reports that the fever has resolved but continues to experience nasal congestion and lung-related symptoms. He describes a blocked feeling in his head and acknowledges a history of smoking for decades, which he attributes to some of his current pulmonary symptoms. He has not had any chest pain but does note difficulty clearing phlegm during coughing. He describes his cough as productive but mentions a persistent rattling sound when breathing deeply, which occurs about 10 minutes after he coughs. He relates that his was previously treated with amoxicillin for similar symptoms, which successfully alleviated her condition. The patient also complained of blocked ears, which he suspects may be due to cerumen build-up. His , Karli, was successfully treated with amoxicillin for similar symptoms. 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 - Smoking History: History of smoking fo r several decades. - Family Status: with a granddau ghter who will be free tomorrow. FORMERLY [facility], 1928–1983 Medical History Upper respiratory infection Obesity (BMI 35.0-39.9 without comorbidity) Paroxysmal atrial fibrillation Afib Hx of basal cell carcinoma Surgical History History of esophagogastroduodenoscopy (EGD) Hx of knee surgery Hx of carpal tunnel repair Hx of rectal sphincterotomy Hx of colonoscopy (~12/10/23) Family History Paternal Uncle Colon cancer Father Prostate cancer Social History Household Members Other:: - adult children Housing: House Alcohol intake: former Patient Tobacco Use Status: Former Tobacco user Second Hand Smoke Exposure: No service: No Current occupational status: employed Current occupation: [employer] Cognitive needs: No Hearing needs: No Vision needs: Yes (rx glasses) Questionnaire PHQ-9 Over the last 2 weeks, how often have you been bothered by any of the following problems? 1. Little interest or pleasure in doing things: not at all 2. Feeling down, depressed, or hopeless: not at all 3. Trouble falling or staying asleep, or sleeping too much: not at all 4. Feeling tired or having little energy: not at all 5. Poor appetite or overeating: not at all 6. Feeling bad about yourself - or that you are a failure or have let yourself or your family down: not at all 7. Trouble concentrating on things, such as reading the newspaper or watching television: not at all 8. Moving or speaking so slowly that other people could have noticed. Or the opposite - being so fidgety or restless that you have been moving around a lot more than usual: not at all 9. Thoughts that you would be better off or of hurting yourself in some way: not at all Total score: 0 Depression Screening Interpretation: Negative Depression Screening Done: Yes 08124 - PHQ-9 Billing: Yes Source: Developed by Drs. Shekhar Gilmore, Tiffany Elliott, Flakito Guzman and colleagues, with an educational patric from [employer]. Thrive Questionnaire Date Thrive assessed: 11/01/24 I am a: Patient What is your living situation today?: I have a steady place to live Within the past 12 months, did the food you bought not last and you didn't have the money to get more?: Never true Within the past 12 months, did you worry whether your food would run out before you got money to buy more?: Never true Do you have trouble paying for medicines?: No Do you have trouble getting transportation to medical appointments?: No Do you have trouble paying your heating and electricity bill?: No Do you have trouble taking care of your child, family member or friend?: No Do you have trouble with day-to-day activities such as bathing, preparing meals, shopping, managing finances, etc.?: No Are you currently unemployed and looking for a job?: No Are you interested in more education?: No Please select the resources that you would like help with: None THRIVE Score: 0 AUDIT C Alcohol Use Questionnaire (AUDIT-C) 1. How often do you have a drink containing alcohol?: Never 3. How often do you have six or more drinks on one occasion?: Never Total Score: 0 Score Reviewed/Action Taken: No URI-7 AMB Questionnaire URI-7 Date URI - 7 assessed: 11/01/24 Feeling nervous, anxious, or on edge: 0 = Not at all Not being able to stop or control worryin = Not at all Worrying too much about different things: 0 = Not at all Trouble relaxin = Not at all Being so restless that it is hard to sit still: 0 = Not at all Becoming easily annoyed or irritable: 0 = Not at all Feeling afraid as if something awful might happen: 0 = Not at all Total URI-7 score (0-4 normal; 5-9 mild; 10-14 moderate; 15-21 severe): 0 Source: Developed by Drs. Shekhar Gilmore, Tiffany Elliott, Flakito Guzman and colleagues, with an educational patric from [employer]. URI-7 Assessment Billing URI-7 Assessment Tool: URI-7 Assessment 13297 Review of Systems Const Details: - Respiratory: Reports congestion, productive cough, and rattling noise when breathing. - Ears: Reports blocked ears possibly due to cerumen impaction. - General: Reports previous fever lasting from Thursday to , now resolved. Physical exam (Primary Care) Vital Signs: Last Vital Signs Temp 98.2 F 12/26/24 11:34 Pulse 60 12/26/24 11:34 Resp 16 12/26/24 11:34 BP 130/69 12/26/24 11:34 Pulse Ox 97 12/26/24 11:34 Oxygen Delivery Method Room Air 12/26/24 11:34 BMI result Body Mass Index 36.9 Tobacco/Smoking Status: Tobacco use Status Tobacco use date assessed 12/26/24 12/26/24 11:41 Patient Tobacco Use Status Former Tobacco user 12/26/24 11:41 PHQ-9: PHQ-9 Score PHQ-9: Total score 0 12/26/24 11:41 Depression Screening Interpretation: Negative Thrive Assessment: Date of Thrive Assessment Date Thrive assessed 11/01/24 12/26/24 11:41 Const Other: Appearance: Alert. Oriented X3. No acute distress. Head: Normal external exam. Normocephalic. Atraumatic. Eyes: Pupils are equal, round, and reactive to light. Extraocular movements intact. Conjunctiva and sclera normal. Eyelids normal. Ears: External auditory canal normal. Tympanic membranes normal. Some wax noted. Throat: Pharynx appears slightly red. Uvula midline. Moist mucous membranes. Neck: Normal inspection. Neck supple. Full range of motion. No adenopathy. Thyroid Normal. No meningeal signs. No neck mass noted. Cardiovascular: Normal heart rate and rhythm. Heart sound normal. No murmurs noted. Pulses normal throughout. Respiratory: No respiratory distress. Painless inspiration. Breath sounds include a slight rattle on deep breath. No wheezes/rales/rhonchi noted. Chest nontender. No accessory muscle usage noted or decreased air movement noted. Back: Full range of motion noted. Skin: Skin warm and dry. Normal skin color. Normal skin turgor. No rashes/lesions/lacerations noted. Extremities:Extremities exhibit normal range of motion. Coding Level of Care Code Est Pt Level 3 (10651) Diagnoses Upper respiratory infection J06.9 Additional Codes PHQ-9 - 19516 - PHQ-9 Billing: Yes ([id number]) URI-7 Assessment Billing - URI-7 Assessment Tool: URI-7 Assessment 37713 ([id number]) Assessment & Plan Assessment & Plan (1) Upper respiratory infection: Code(s): J06.9 - Acute upper respiratory infection, unspecified Category: Medical Plan: Treatment with Augmentin for 10 days was initiated to address the bacterial infection causing sinus congestion. Discussion of side effects like diarrhea was conducted, with probiotics suggested as a mitigating measure should it occur. A minimum of 7 days of antibiotic adherence was emphasized. Prescription of prednisone to reduce inflammation and wheezing was made, with an albuterol inhaler prescribed for episodes of shortness of breath. Consideration of the patient's long-term smoking history was factored into ongoing symptom management and monitoring plans. Plan Plan Patient was informed and verbally consented to the use of an ambient scribe for clinic note documentation during this visit. 1. Upper respiratory infection/bronchitis with bronchospasm Treatment with Augmentin for 10 days was initiated to address the bacterial infection causing sinus congestion. Discussion of side effects like diarrhea was conducted, with probiotics suggested as a mitigating measure should it occur. A minimum of 7 days of antibiotic adherence was emphasized. Prescription of prednisone to reduce inflammation and wheezing was made, with an albuterol inhaler prescribed for episodes of shortness of breath. Consideration of the patient's long-term smoking history was factored into ongoing symptom management and monitoring plans. 2. Cerumen Recommended using home remedy with peroxide for earwax removal if desired, with monitoring of symptoms suggested, though no prescription is required unless condition persists. During our conversation, I diagnosed the patient with upper respiratory infection with bronchospasm and cerumen to bilateral ears. We discussed the benefits and risks of Augmentin, including the risk of diarrhea, and I advised using probiotics to prevent potential side effects. A 10-day course, with adherence of at least 7 days, was agreed upon. For chronic bronchitis symptoms, prednisone was prescribed to manage lung inflammation and the patient was provided an albuterol inhaler for persistent shortness of breath. Given the history of smoking, the importance of vigilant symptom monitoring was emphasized. For cerumen, a home remedy using peroxide was suggested. Treatment plans were thoroughly discussed, and the patient consented to the recommended interventions and medications. Medications: New amoxicillin-pot clavulanate 875-125 mg 1 tab PO BID 10 days 20 tabs 0RF albuterol sulfate 90 mcg/actuation 1 inh inhalation QID PRN 6.7 grams 0RF shortness of breath or wheezing prednisone 40 mg (2 x 20 mg) PO DAILY 5 days 10 tabs 0RF Patient Instructions: - Take Augmentin for 10 days, and be sure to finish at least 7 days of the course. - Use the prednisone as directed for wheezing and inflammation. - Use the albuterol inhaler if feeling short of breath. - Try a peroxide home remedy for blocked ears if desired. - Take probiotics if experiencing diarrhea as a side effect of antibiotics. - Monitor symptoms and seek further care if not improving or if symptoms worsen.
[2024-12-26 11:34] VITALS: BP 130/69; PULSE 60; RESP 16; TEMP 36.8; O2SAT 97; BMI 36.9
== END 2024-12-26 11:55 | disposition home or self-care (01) ==
LOC: HO.HMCSH 11:28
PROVIDERS: PCP Internal Medicine; Visit Provider Physician Assistant Medical
DX: J06.9 Acute upper respiratory infection, unspecified (principal)

== ENCOUNTER → 2024-12-26 11:28 | Outpatient (BNVA) | payer BC, SELFPAY | PROVIDERS: PCP Internal Medicine; Visit Provider Physician Assistant Medical | DX: J06.9 Acute upper respiratory infection, unspecified (principal) | CPT/HCPCS: 96127 ==

== ENCOUNTER 2025-01-10 14:12 | Outpatient (AMB) | payer BC, SELFPAY ==
--- NOTE | 2025-01-10 14:22 | MHC.OFFVIS ---
Vital Signs 01/10/25 14:23 Height 6 ft 3 in Weight 290 lb BMI 36.2 BP 122/76 Blood Pressure Location Lt brachial Position Sitting Pulse 68 Pulse Source Monitor Intake Visit Reasons: 6m follow up Allergies demeral Allergy (Mild, Uncoded 12/26/24 11:49) Itching Medication List - Last Reconciled 01/10/25 by Edwin Rodriguez MD albuterol sulfate 90 mcg/actuation 1 inh inhalation QID PRN famotidine 40 mg PO BEDTIME flecainide 100 mg PO Q12H hydrocortisone-iodoquinol 1-1 % appl topical metoprolol tartrate 25 mg PO BID 90 days HPI Comments Details: Raymundo comes for follow-up. He has not had any significant symptoms of atrial fibrillation. Doing well. Has lost about 48 lb with diet modification and remaining active. He denies any exertional chest pain or shortness of breath. He has better symptoms with osteoarthritis as well. Denies orthopnea, PND, leg edema. No lightheadedness, syncope. [facility] Medical History Upper respiratory infection Obesity (BMI 35.0-39.9 without comorbidity) Paroxysmal atrial fibrillation Afib Hx of basal cell carcinoma Surgical History History of esophagogastroduodenoscopy (EGD) Hx of knee surgery Hx of carpal tunnel repair Hx of rectal sphincterotomy Hx of colonoscopy (~12/10/23) Family History Paternal Uncle Colon cancer Father Prostate cancer Social History Household Members Other:: - adult children Housing: House Alcohol intake: former Patient Tobacco Use Status: Former Tobacco user Second Hand Smoke Exposure: No service: No Current occupational status: employed Current occupation: [employer] Cognitive needs: No Hearing needs: No Vision needs: Yes (rx glasses) Review of Systems Const Denies weakness ENT Reports no additional complaints and Denies dizziness Card Reports no additional complaints, Denies chest pain, Denies chest pain with activity, Denies syncope, Denies rapid heart rate, Denies pedal edema, Denies edema, Denies leg edema, Denies lightheadedness, Denies palpitations, Denies dyspnea, Denies dyspnea on exertion and Denies orthopnea Resp Reports no additional complaints, Denies cough, Denies dyspnea and Denies dyspnea on exertion GI Denies hematochezia and Denies change in stool character Musc Denies abnormal gait, Denies muscle cramps, Denies muscle weakness, Denies numbness, Denies radiating pain into limb and Denies tingling Neuro Denies Abnormal speech present, Denies abnormal gait, Denies dizziness, Denies syncope, Denies numbness, Denies tingling and Denies weakness Endo Denies palpitations Physical Exam Vital Signs: Last Vital Signs Pulse 68 01/10/25 14:23 BP 122/76 01/10/25 14:23 BMI result Body Mass Index 36.2 Const General: cooperative, comfortable, no acute distress, alert, awake and Physically active Nutritional Appearance: obese Orientation/consciousness: patient oriented x3 Limitations: no limitations HEENT Head: Yes normocephalic and Yes atraumatic Neck Neck: Yes trachea midline, Yes supple and Yes no JVD Resp Effort & Inspection: normal respiratory effort Auscultation: clear to auscultation bilaterally Cardio Jugular venous distension: no JVD Palpation: normal PMI Rate: regular rate Rhythm: regular rhythm Heart sounds: S1 normal heart sound present, S2 normal heart sound present, no click, no gallops, no murmurs and no rubs GI Inspection: Yes obesity Auscultation: normal bowel sounds Skin General skin exam: no rashes or lesions noted Neuro General: patient oriented x3 and no focal motor deficits Speech: No Abnormal speech present Extrem General: Yes no clubbing, cyanosis or edema Psych Appearance: grossly normal Office Procedures EKG Details: EKG shows normal sinus rhythm otherwise normal EKG 33411-Iddvpfiqaujrcpnme, Complete Assessment & Plan Assessment & Plan (1) Paroxysmal atrial fibrillation: Comment: Has been cardioverted 3-4 times in the past Code(s): I48.0 - Paroxysmal atrial fibrillation Category: Medical Plan: Highly symptomatic paroxysmal atrial fibrillation has done extremely well with rhythm control approach. Continue pursue rhythm control approach. Continue current antiarrhythmic drug therapy with flecainide and concomitant metoprolol therapy. No indication for anticoagulation at this point time. Continue to participate in weight loss program. Avoidance of stimulants was discussed. Follow up in the clinic in 6 months for EKG in 1 year with me after echocardiogram. Thank you for allowing me to partake in his care Orders: Orders CA echo transthoracic complete 1 Year I48.0 - Paroxysmal atrial fibrillation Coding Level of Care Code Est Pt Level 4 (14181) Complex EM visit Add On G2211 Diagnoses Paroxysmal atrial fibrillation I48.0 CPT Codes EKG - CPT: 86304-Fdlgxehczyhcnxaos, Complete ([id number])
[2025-01-10 14:23] VITALS: BP 122/76; PULSE 68; BMI 36.2
--- OUTSIDE RECORDS SUMMARY | 2025-01-10 16:01 | XMS_ITS | Data Portability ---
Author Organization [facility], YING Pinto Address [address] [place] [address] Assessment No assessment recorded. Plan of Treatment Reminders Order Date Submit Date Provider Last Modified By Organization Details Last Modified Time Details Appointments None record ed. Lab None record ed. Referral None record ed. Procedures None record ed. Surgeries None record ed. Imaging XR, knee, 4 or more view 025 01/07/20 [email or web address] Android App Review [employer] [facility], [address] [facility] [address], [place] [address], [place], [address], 5 11:20:27 Medication Orders None record ed. Patient TargetsNo targets recorded. Patient InstructionsNo instructions recorded. Reason for Referral None Reported. Results Created Date Observation Date Name Description Value Unit Range Abnormal Flag Note LastModifiedBy Organization Detail LastModifiedTime 01/07/20 25 01/06/2025 XR, knee, 4 or more view http:/ [email or web address] ?Encry pted=s hAaTro YD8dLq bEUv6g %2BXZw aYqtaq 0bqfl% 2Fg9IQ a4ajBk vP9nXo QUaueC m3YtLR FvZlgJ JJ8mAn HZtai3 8f3532 AC0Kla 3qNVaa gKiQtr MwF INTERFACE Android App Review [facility] [address] [employer] [address], [place], [address], 01/06/2025 15:07:56 01/07/20 25 01/06/2025 XR, knee, 4 or more view http:/ [email or web address] ?Encry pted=s hAaTro YD8dLq bEUv6g %2BXZw aYqtaq 0bqfl% 2Fg9IQ a4ajBk vP9nXo QUaueC m3YtLR FvZlgJ JJ8mAn HZtai3 4a5427 AC0Kla 3qNVaa gKiQtr MwF INTERFACE [facility] [address], [place], [address], 01/06/2025 15:07:57 Result Notes None recorded. Problems Name Problem SNOMED Code Status Onset Date Resolution Date Notes Provider Name and Address Organization Details Recorded Time Osteoarthri tis of right knee joint 8147173489547 00 Active 2024 NONI Rivas-C [address], [place], [address], [facility] 15:40:59 Problem Notes None recorded. Procedures Surgical History Date Name Laterality Status Provider Name and Address Organization Details Recorded Time 5 Sports Knee 4&1 completed Jeannie Jauregui PA-C [address], [place], [address], [facility] 01/06/2025 15:40:52 5 JZTrigger Finger Injection completed NONI Buchanan-C [address], [place], [address], [facility] 11/23/2024 13:53:31 Imaging Results None recorded. Procedure Notes None recorded. Medical Equipment None Reported. Allergies Allergen ID Allergen Name Allergen Category Reaction Reaction Severity Criticality Documentation Date Start Date Code Code System Note Provider Name and Address Organization Details Recorded Time 162650 acetamino phen / hydrocodo ne medicatio n Not available Not available Not available 11/23/2024 33034 2 RxNorm JAS VIERA [facility] 5 13:16:15 Medications Name Sig Start Date Stop Date Status Note LastModified by Organization Details LastModified Time meloxicam 15 mg tablet TAKE 1 TABLET BY MOUTH EVERY DAY active Not Available Not Available No t Available famotidine 40 mg tablet TAKE 1 TABLET BY MOUTH EVERY DAY active Not Available Not Available No t Available prednisone 20 mg tablet TAKE 2 TABLETS ORALLY DAILY FOR 5 DAYS 01/06 completed Not Available Not Available Not Available betamethaso ne, augmented 0.05 % topical cream APPLY TO AFFECTED AREA TWICE A DAY active Not Available Not Available No t Available triamcinolo ne acetonide 0.1 % topical cream APPLY THIN COAT TO AFFECTED AREA TWICE A DAY active Not Available Not Available No t Available betamethaso ne, augmented 0.05 % lotion APPLY TO AFFECTED AREA TWICE A DAY NEEDED 11/23 completed Not Available Not Available Not Available flecainide 50 mg tablet TAKE 1 TABLET BY MOUTH 2 TIMES A DAY FOR 90 DAYS 11/23 completed Not Available Not Available Not Available flecainide 100 mg tablet TAKE 1 TABLET BY MOUTH EVERY 12 HOURS active Not Available Not Available No t Available bisacodyl 5 mg tablet,amor yed release PLEASE SEE ATTACHED FOR DETAILED DIRECTION S 11/23 completed Not Available Not Available Not Available albuterol sulfate HFA 90 mcg/actuati on aerosol inhaler 1 PUFF INHALED 4 TIMES A DAY NEEDED FOR SHORTNESS OF BREATH OR WHEEZING active Not Available Not Available No t Available hydrocortis one 1 %-iodoquino l 1 % topical cream APPLY TWICE A DAY NEEDED active Not Available Not Available No t Available naproxen 500 mg tablet TAKE 1 TABLET BY MOUTH TWICE A DAY WITH FOOD 11/23 completed Not Available Not Available Not Available amoxicillin 875 mg-potassiu m clavulanate 125 mg tablet TAKE 1 TABLET BY MOUTH TWICE A DAY FOR 10 DAYS 01/06 completed Not Available Not Available Not Available metoprolol tartrate 25 mg tablet TAKE 1 TABLET ORALLY 2 TIMES A DAY FOR 90 DAYS active Not Available Not Available No t Available metronidazo le 1 % topical gel APPLY TOPICALLY TO FACE ONCE DAILY active Not Available Not Available No t Available Gavilax 17 gram/dose oral powder PLEASE SEE ATTACHED FOR DETAILED DIRECTION S 11/23 completed Not Available Not Available Not Available Vitals Date Recorded Body height Body mass index (BMI) Body weight Provider Name and Address Organization Details Last Updated DateTime 11/23/2024 190.5 cm 39.4 kg/m2 053838.6 g JAS Mcallister [facility] 11/23/2024 13:16:08 Date Recorded Body height Body mass index (BMI) Body weight Provider Name and Address Organization Details Last Updated DateTime 01/06/2025 190.5 cm 36.1 kg/m2 317837.19 brijesh givens [facility] 01/06/2025 15:00:08 Social History None recorded. Functional Status None recorded. Mental Status None recorded. Family History Nothing Reported. Medical History No medical history recorded. Past Encounters Encounter ID Performer Location Encounter Start Date Encounter Closed Date Diagnosis/Indication Diagnosis SNOMED-CT Code Diagnosis ICD10 Code Diagnosis Note [id number] AURA Buchanan [address] [place] [address] 11/23/2024 12:55:38 12/13/2024 09:02:[id number] [facility] [address] [place] [address] 01/06/2025 14:32:18 01/06/2025 15:42:16 Pain of right knee joint 9582210095 84132 M25.561 Osteoarthr itis of right knee joint 4249076406 08381 M17.11 Reviewed patient's imaging and exam findings in detail with him. Reviewed that he has moderate underlying right knee osteoarthr itis primarily in the patellofem oral compartmen t. When he was loading the anterior knee going down the stairs and heard a pop most likely secondary to catching the arthritic cartilage in the retropatel lar surface. He does not have any meniscal irritabili ty or tenderness on exam. He is also reported substantia l improvemen ts in his pain and symptoms with custom orthotics and hinged knee brace. Recommende d intra-monet cular cortisone injection for added symptomati c relief. These can be repeated as often as every 3 months by imagine this should last him much longer than that. He may follow-up on an as-needed basis if symptoms worsen or do not continue to improve. Otherwise follow-up as needed. All questions and concerns were addressed and answered. Health Concerns Section Related Observation LastModified by Organization Detai ls LastModified Time None Recorded Concern Status LastModified by Organization Details LastModified Time None Recorded Advance Directives Directive None Recorded Payers Encounter Date Sequence Insurance Name Policy Number Policy Julien Covered Member ID Julien Member ID Guarantor Name 01/06/2025 1 [facility] [id number] Raymundo Fields [id number] Raymundo Fields Notes Date Note Type Note Provider Name and Address Organization Details Recorded Time 11/23/2024 text/html I am seeing the patient today under the supervision of dr Olivo who was available but who did not see the patient. DX: Flexor tenosynovitis left ring fingerFlexor tenosynovitis right ring fingerhistory of bilateral carpal [place] index middle and ring fingers in [place] HPI: 64-year-old male here for orthopedic consultation. The patient reports pain to the bilateral ring finger for the past few weeks. 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 The patient wakes up in the morning with his PIP joint in a flexed posture, and has to manually extend the finger. The patient has pain with grasp, no numbness or tingling. Past family, medical, social history and review of systems has been reviewed, updated and signed by me and is located in the patient? s chart. Examination: Alert and oriented ? ? 3 . No acute distress. Nonantalgic gait bilateral ring finger reveals no soft tissue swelling, erythema, or ecchymosis. Tender nodule over the A1 dl region, no audible click or snap noted. Has decent range of motion. Sensation is intact, 1+ capillary refill, 2+ radial pulse. X-rays ordered, obtained and reviewed at [facility] none Impression/Plan:Findi ngs and situation discussed with patient. Recommended cortisone injection. Under aseptic technique, 40 mg of Kenalog-40 injected into the A1 dl region of the bilateral ring finger. The patient tolerated the procedure well. Postinjection precautions were discussed. Will follow up in six weeks if no improvement. Provided with a trigger finger handout. Annette Redmond PA-C [address] [facility] [address] [facility], [place], [address], [facility] 11/23/2024 13:53:47 01/06/2025 text/html I am seeing the patient under the general supervision of Dr. Fitzgerald who was available but who did not see the patient. HPI:Patient is a 64 year old male who presents today with chief complaint of right knee pain. He reports pain that started several years ago. He describes a snapping/cracking to the knee which has been chronic for him. It is generally not painful. He started using osteobiflex which he finds helpful. He also purchased custom orthotics which he has found to be very helpful as well. He feels like his feet havn't felt this good in 20 years! He describes at the end of the day working on concrete floors in the [place] he would be limping. He has been using ice and heat which has been helpful and allowed him to continue working. He feels that his left knee has resolved for the most part but continues to have right knee pain primarily to the posterior knee. He has lost 45 lbs as well. He reports approximately 6 weeks ago he was carrying a heavy bag down his stairs and as he was stepping down he heard and felt a loud pop to the knee to the anterior aspect. Subsequently he had to sit down. He went to the emergency room. He was prescribed a knee brace at the time. Also since that time he has been using the orthotics. He reports that the pain has substantially improved but does continue to get diffuse anterior knee pain. Denies any catching, locking or buckling. Denies any medial or lateral joint line pain. DIAGNOSTIC IMAGIN view right knee radiographs were ordered, obtained and independently reviewed by myself during today's visit at [facility] and demonstrate well-preserved tibiofemoral joint spaces. Mild far patellofemoral joint space narrowing noted on lateral merchant views with large lateral patellar osteophyte on the right knee noted. Impression: Moderate right knee patellofemoral osteoarthritis Jeannie Jauregui PA-C [address], [place], [address], [facility] 01/06/2025 15:42:15
== END 2025-01-10 15:04 | disposition home or self-care (01) ==
LOC: HO.HCS 14:14
PROVIDERS: PCP Internal Medicine; Visit Provider Internal Medicine Cardiovascular Disease
DX: I48.0 Paroxysmal atrial fibrillation (principal)
CPT/HCPCS: 93010; 99214

== ENCOUNTER → 2025-01-10 14:12 | Outpatient (BNVA) | payer BC, SELFPAY | PROVIDERS: PCP Internal Medicine; Visit Provider Internal Medicine Cardiovascular Disease | DX: I48.0 Paroxysmal atrial fibrillation (principal) | CPT/HCPCS: 93005 ==

== ENCOUNTER 2025-02-01 14:37 | Outpatient (AMB) | payer BC, SELFPAY ==
[2025-02-01 14:40] VITALS: BP 114/59; PULSE 58; RESP 20; TEMP 36.7; O2SAT 97; BMI 35.2
--- NOTE | 2025-02-01 14:40 | MHC.PC.OV ---
Vital Signs 02/01/25 14:40 Height 6 ft 3 in Weight 282 lb BMI 35.2 BP 114/59 L Respiration 20 Pulse 58 Pulse Source Pulse Oximeter Temp 98.0 F Temp Source Temporal Artery Scan Pulse Oximetry (%) 97 Oxygen Delivery Method Room Air Intake Visit Reasons: Trouble with bowels Install And Repair Technician Required: No Accompanied by: Self / Same As Patient Allergies demeral Allergy (Mild, Uncoded 02/01/25 15:02) Itching Medication List - Last Reconciled 02/01/25 by Jina Marroquin PA-C albuterol sulfate 90 mcg/actuation 1 inh inhalation QID PRN flecainide 100 mg PO Q12H hydrocortisone-iodoquinol 1-1 % appl topical metoprolol tartrate 25 mg PO BID 90 days Tobacco use date assessed: 02/01/25 Dental Screening Dental Screen Date: 11/01/24 HPI Trouble with bowels HPI Details The patient is a 64-year-old male presenting with abdominal cramping and constipation. These symptoms began after starting osteobioflex tablets for osteoarthritis, likely due to the calcium content in the supplement. The patient has a history of osteoarthritis, with significant weight loss of 58 pounds, positively impacting his condition. Previously, the patient had an upper respiratory infection treated with an albuterol inhaler, resolving the symptoms. Past blood work showed an elevated random glucose level, raising concerns about potential diabetes, although the patient has no history of diabetes. The patient follows a structured diet, including yogurt and fruit for breakfast, salad with protein for lunch, and a light dinner with occasional sweets, ensuring adequate hydration. Social History - Diet: Yogurt and fruit for breakfast, salad with protein for lunch, light dinner, occasional sweets, and a designated carbohydrate day weekly. - Weight management: Significant weight loss of 58 pounds. PFSH Medical History (Updated 02/01/25 @ 15:24 by Jina Marroquin PA-C) Preventative health care Constipation LLQ abdominal pain Arthritis Upper respiratory infection Obesity (BMI 35.0-39.9 without comorbidity) Paroxysmal atrial fibrillation Afib Hx of basal cell carcinoma Surgical History History of esophagogastroduodenoscopy (EGD) Hx of knee surgery Hx of carpal tunnel repair Hx of rectal sphincterotomy Hx of colonoscopy (~12/10/23) Family History Paternal Uncle Colon cancer Father Prostate cancer Social History Household Members Other:: - adult children Housing: House Alcohol intake: former Patient Tobacco Use Status: Former Tobacco user Second Hand Smoke Exposure: No service: No Current occupational status: employed Current occupation: [employer] Cognitive needs: No Hearing needs: No Vision needs: Yes (rx glasses) Questionnaire PHQ-9 Over the last 2 weeks, how often have you been bothered by any of the following problems? 1. Little interest or pleasure in doing things: not at all 2. Feeling down, depressed, or hopeless: not at all 3. Trouble falling or staying asleep, or sleeping too much: not at all 4. Feeling tired or having little energy: not at all 5. Poor appetite or overeating: not at all 6. Feeling bad about yourself - or that you are a failure or have let yourself or your family down: not at all 7. Trouble concentrating on things, such as reading the newspaper or watching television: not at all 8. Moving or speaking so slowly that other people could have noticed. Or the opposite - being so fidgety or restless that you have been moving around a lot more than usual: not at all 9. Thoughts that you would be better off or of hurting yourself in some way: not at all Total score: 0 Depression Screening Interpretation: Negative Depression Screening Done: Yes 44671 - PHQ-9 Billing: Yes Source: Developed by Drs. Shekhar Gilmore, Tiffany Elliott, Flakito Guzman and colleagues, with an educational patric from [employer]. Thrive Questionnaire Date Thrive assessed: 12/26/24 I am a: Patient What is your living situation today?: I have a steady place to live Within the past 12 months, did the food you bought not last and you didn't have the money to get more?: Never true Within the past 12 months, did you worry whether your food would run out before you got money to buy more?: Never true Do you have trouble paying for medicines?: No Do you have trouble getting transportation to medical appointments?: No Do you have trouble paying your heating and electricity bill?: No Do you have trouble taking care of your child, family member or friend?: No Do you have trouble with day-to-day activities such as bathing, preparing meals, shopping, managing finances, etc.?: No Are you currently unemployed and looking for a job?: No Are you interested in more education?: No Please select the resources that you would like help with: None THRIVE Score: 0 AUDIT C Alcohol Use Questionnaire (AUDIT-C) 1. How often do you have a drink containing alcohol?: Never 3. How often do you have six or more drinks on one occasion?: Never Total Score: 0 Score Reviewed/Action Taken: No URI-7 AMB Questionnaire URI-7 Date URI - 7 assessed: 12/26/24 Feeling nervous, anxious, or on edge: 0 = Not at all Not being able to stop or control worryin = Not at all Worrying too much about different things: 0 = Not at all Trouble relaxin = Not at all Being so restless that it is hard to sit still: 0 = Not at all Becoming easily annoyed or irritable: 0 = Not at all Feeling afraid as if something awful might happen: 0 = Not at all Total URI-7 score (0-4 normal; 5-9 mild; 10-14 moderate; 15-21 severe): 0 Source: Developed by Drs. Shekhar Gilmore, Tiffany Elliott, Flakito Guzman and colleagues, with an educational patric from [employer]. URI-7 Assessment Billing URI-7 Assessment Tool: URI-7 Assessment 69062 Review of Systems Const Details: - Gastrointestinal: Reports abdominal cramping and constipation. Denies bloody or black stools. - Musculoskeletal: Reports osteoarthritis, particularly in the knee. - Respiratory: Denies current respiratory symptoms, previously treated for upper respiratory infection. Physical exam (Primary Care) Vital Signs: Last Vital Signs Temp 98.0 F 02/01/25 14:40 Pulse 58 02/01/25 14:40 Resp 20 02/01/25 14:40 BP 114/59 L 02/01/25 14:40 Pulse Ox 97 02/01/25 14:40 Oxygen Delivery Method Room Air 02/01/25 14:40 BMI result Body Mass Index 35.2 Tobacco/Smoking Status: Tobacco use Status Tobacco use date assessed 02/01/25 02/01/25 14:43 Patient Tobacco Use Status Former Tobacco user 02/01/25 14:43 PHQ-9: PHQ-9 Score PHQ-9: Total score 0 02/01/25 14:58 Depression Screening Interpretation: Negative Thrive Assessment: Date of Thrive Assessment Date Thrive assessed 12/26/24 02/01/25 14:43 Const Other: Appearance: Alert. Oriented X3. No acute distress. Head: Normal external exam. Normocephalic. Atraumatic. Eyes: Pupils are equal, round, and reactive to light. Extraocular movements intact. Conjunctiva and sclera normal. Eyelids normal. Throat: Pharynx normal. Uvula midline. Moist mucous membranes. Neck: Normal inspection. Neck supple. Full range of motion. Cardiovascular: Normal heart rate and rhythm. Respiratory: No respiratory distress. Painless inspiration. Abdomen: Soft and nontender. Bowel sounds normal in all 4 quadrants. No distention noted. No organomegaly noted. No visible injury noted. Patient reports abdominal cramping and constipation. Back: No costovertebral angle tenderness. Full range of motion noted. Skin: Skin warm and dry. Normal skin color. Normal skin turgor. No rashes/lesions/lacerations noted. Extremities: Extremities exhibit normal range of motion. Extremities nontender. History of arthritis in the knee, but no damage to meniscus, ACL, or MCL. Neuro: Oriented X 3. No motor deficit. No sensory deficit. Reflexes normal. Results AMB Hemoglobin A1c AMB Hemoglobin A1c 5.5 % Last Edit by JEFERSON Villalba on 02/01/25 15:21 Results Reviewed Results Reviewed: - Labs: Previous random glucose level elevated at 127 mg/dL. - Imaging: Planned CT scan of the abdomen and pelvis. Coding Level of Care Code Est Pt Level 4 (24748) Complex EM visit Add On G2211 Diagnoses Arthritis M19.90 Constipation K59.00 LLQ abdominal pain R10.32 Preventative health care Z00.00 Additional Codes URI-7 Assessment Billing - URI-7 Assessment Tool: URI-7 Assessment 70074 ([id number]) PHQ-9 - 25454 - PHQ-9 Billing: Yes ([id number]) Time Spent (min) 30 Assessment & Plan Assessment & Plan (1) Arthritis: Code(s): M19.90 - Unspecified osteoarthritis, unspecified site Category: Medical Plan: Continue osteobioflex tablets for pain relief, with a bowel regimen to manage constipation. Condition is chronic and stable will continue to monitor. (2) Constipation: Code(s): K59.00 - Constipation, unspecified Category: Medical Plan: Consider discontinuing osteobioflex to see if constipation improves, with a plan to start a bowel regimen if necessary. (3) LLQ abdominal pain: Code(s): R10.32 - Left lower quadrant pain Category: Medical Plan: Order a CT scan of the abdomen and pelvis to rule out other causes of cramping. (4) Preventative health care: Code(s): Z00.00 - Encounter for general adult medical examination without abnormal findings Category: Medical Plan: Order comprehensive blood work and a stool sample for H. pylori testing. Plan Plan Patient was informed and verbally consented to the use of an ambient scribe for clinic note documentation during this visit. 1. Osteoarthritis Continue osteobioflex tablets for pain relief, with a bowel regimen to manage constipation. 2. Constipation Consider discontinuing osteobioflex to see if constipation improves, with a plan to start a bowel regimen if necessary. 3. Abdominal Cramping Order a CT scan of the abdomen and pelvis to rule out other causes of cramping. 4. Preventative Care Order comprehensive blood work and a stool sample for H. pylori testing. We discussed the potential side effects of osteobioflex, including constipation, and the option to discontinue it to see if symptoms improve. A bowel regimen was recommended to manage constipation if the supplement is continued. I explained the need for a CT scan to rule out other causes of abdominal cramping and the importance of completing blood work and a stool sample for comprehensive evaluation. Orders: Orders Complete Blood Count Auto Diff Today Z00.00 - Encounter for general adult medical examination without abnormal findings Liver Panel Today Z00.00 - Encounter for general adult medical examination without abnormal findings Lipid Panel Today Z00.00 - Encounter for general adult medical examination without abnormal findings Vitamin D 25-OH Total Today Z00.00 - Encounter for general adult medical examination without abnormal findings Comprehensive Met. Panel Today Z00.00 - Encounter for general adult medical examination without abnormal findings Magnesium Today Z00.00 - Encounter for general adult medical examination without abnormal findings C Reactive Protein Today Z00.00 - Encounter for general adult medical examination without abnormal findings Vitamin B12 and Folate Today Z00.00 - Encounter for general adult medical examination without abnormal findings TSH reflex Free T4 Today Z00.00 - Encounter for general adult medical examination without abnormal findings PSA,Total (Free>4and<10) Today Z00.00 - Encounter for general adult medical examination without abnormal findings CT abdomen pelvis w IV con Today K59.00 - Constipation, unspecified, R10.32 - Left lower quadrant pain H pylori Ag Stool Today K59.00 - Constipation, unspecified, R10.32 - Left lower quadrant pain AMB Hemoglobin A1c Today Z13.9 - Encounter for screening, unspecified Patient Instructions: - Consider stopping osteobioflex to see if constipation improves. - Follow a bowel regimen with Colace and MiraLAX if constipation persists. - Complete blood work and provide a stool sample as instructed. - Schedule and complete the CT scan of the abdomen and pelvis.
== END 2025-02-01 15:17 | disposition home or self-care (01) ==
LOC: HO.HMCSH 14:37
PROVIDERS: PCP Internal Medicine; Visit Provider Physician Assistant Medical
DX: M19.90 Unspecified osteoarthritis, unspecified site (principal); K59.00 Constipation, unspecified; R10.32 Left lower quadrant pain; Z00.00 Encounter for general adult medical examination without abnormal findings; Z13.9 Encounter for screening, unspecified

== ENCOUNTER → 2025-02-01 14:37 | Outpatient (BNVA) | payer BC, SELFPAY | PROVIDERS: PCP Internal Medicine; Visit Provider Physician Assistant Medical | DX: Z00.00 Encounter for general adult medical examination without abnormal findings (principal); M19.90 Unspecified osteoarthritis, unspecified site; K59.00 Constipation, unspecified; R10.32 Left lower quadrant pain | CPT/HCPCS: 83036; 96127 ==

== ENCOUNTER 2025-02-02 06:15 | Outpatient (REF) | payer BC, SELFPAY ==
[2025-02-02 10:06] LABS: MANUAL DIFF FLAG NO
[2025-02-02 10:10] LABS: Basophils Absolute Auto 0.1 X10*3/uL (0.0-0.2); Basophils Percent Auto 1.2 % (0-2); Eosinophils Absolute Auto 0.1 X10*3/uL (0.0-0.4); Hematocrit 42.6 % (42.0-52.0); Hemoglobin 13.7 g/dl (14.0-18.0); Imm Gran Abs Auto 0.01 X10*3/uL (0.00-0.03); Imm Gran Pct Auto 0.2 % (0.0-0.4); Lymphocytes Absolute Auto 1.8 X10*3/uL (1.2-4.9); Lymphocytes Percent Auto 35.6 % (20-40); Mean Corpuscular HGB Conc 32.2 g/dl (31.0-36.0); Mean Corpuscular Hemoglobin 29.8 pg (27.0-33.0); Mean Corpuscular Volume 92.6 fL (80.0-98.0); Mean Platelet Volume 9.4 fL (9.4-12.4); Monocytes Absolute Auto 0.4 X10*3/uL (0.1-1.2); Monocytes Percent Auto 7.7 % (2-11); Neutrophils Absolute Auto 2.6 x10*3/uL (2.0-8.3); Neutrophils Percent Auto 53.3 % (45-73); Platelet Count 220 X10*3/uL (160-400); White Blood Count 4.9 X10*3/uL (4.8-10.8)
[2025-02-02 10:34] LABS: Alanine Aminotransferase 21 U/L (0-40); Albumin Level 4.2 g/dL (3.5-5.0); Alkaline Phosphatase 55 U/L (39-117); Anion Gap 11 (12-20); Aspartate Amino Transferase 21 U/L (5-37); Bilirubin Direct 0.2 mg/dL (0.0-0.5); Bilirubin Total 0.6 mg/dL (0.0-1.0); Blood Urea Nitrogen 11 mg/dL (9-16); C Reactive Protein 0.19 mg/dL (< or = 0.50); Carbon Dioxide 28 mmol/L (22-29); Chloride 105 mmol/L (96-108); Cholesterol 155 mg/dL (<200); Estimated Glomerular Filt Rate > 60; Glucose Random 97 mg/dL (60-115); HDL Cholesterol 41 mg/dL (>40); LDL Cholesterol Calculated 99 mg/dL (<100); Magnesium 2.3 mg/dL (1.6-2.6); Sodium 140 mmol/L (135-145); Total Protein 6.7 g/dL (6.5-8.0); Triglycerides 79 mg/dL (<150)
[2025-02-02 10:41] LABS: PSA,Total (Free>4and<10) 0.57 ng/mL (0.00-4.00)
[2025-02-02 10:43] LABS: TSH reflex Free T4 1.51 uIU/mL (0.32-4.0); Vitamin D 25-OH Total 45.6 ng/mL (>30)
[2025-02-02 11:05] LABS: Folate 8.2 ng/mL (> or = 4.0); Vitamin B12 407 pg/mL (200-900)
== END 2025-02-02 06:16 | disposition home or self-care (01) ==
LOC: HO.HMGCLDS 06:15
PROVIDERS: Visit Provider Physician Assistant Medical
DX: Z00.00 Encounter for general adult medical examination without abnormal findings (principal); K59.00 Constipation, unspecified; R10.32 Left lower quadrant pain; Z12.5 Encounter for screening for malignant neoplasm of prostate
CPT/HCPCS: 36415; 80053; 80061; 82248; 82306; 82607; 82746; 83735; 84153; 84443; 85025; 86140; 87338

== ENCOUNTER 2025-04-05 06:32 | Outpatient (REF) | payer BC, SELFPAY ==
--- NOTE | ~2025-04-05 | CT_ITS ---
EXAMINATION: CT ABDOMEN PELVIS WITH IV CONTRAST HISTORY: R10.32 - Left lower quadrant pain COMPARISON: There are no prior studies for available comparison. TECHNIQUE: CT scan of the abdomen and pelvis was performed following administration of 85 mL Omnipaque 350 using standard departmental protocol. Coronal and sagittal reformatted images were generated and reviewed. The patient received oral contrast material. This CT exam was performed with one or more of the following dose reduction techniques: automated exposure control, adjustment of the mA and/or kV according to patient size, use of iterative reconstruction technique. DLP: 639 mGy-cm FINDINGS: LOWER CHEST: The visualized lung bases are clear. There is no pleural effusion. CARDIOVASCULATURE: The heart is normal in size. There is no pericardial effusion. LIVER: The liver is normal in size and contour. There is a 10 mm probable cyst in segment IV. The hepatic and portal veins are patent. GALLBLADDER / BILE DUCTS: The gallbladder is unremarkable. There is no intra or extrahepatic biliary ductal dilatation. SPLEEN: The spleen is normal in size. No focal splenic lesion is identified. PANCREAS: The pancreas is unremarkable in appearance. ADRENAL GLANDS: Within normal limits. KIDNEYS/RETROPERITONEUM: No renal calculi are identified. There is no hydronephrosis. There is a 4.2 cm cyst at the upper pole of the right kidney and a 2.2 cm cyst at the lower pole. LYMPH NODES: No abdominal or pelvic lymphadenopathy. VASCULATURE: The abdominal aorta demonstrates atherosclerotic calcification, but is normal in caliber. MESENTERY/PERITONEUM: No free fluid. No masses. There is no free intraperitoneal gas. STOMACH: The stomach is unremarkable. SMALL BOWEL: The small bowel is normal in caliber. COLON: There is a large amount of stool throughout the colon. APPENDIX: Normal. URINARY BLADDER/PELVIC ORGANS: The urinary bladder is unremarkable. The prostate is normal in size. BONES / SOFT TISSUES: There is degenerative disc disease of the spine. CT/CT abdomen pelvis w IV con IMPRESSION: Large amount of stool throughout the colon. Electronically signed by: Shekhar King MD 04/05/2025 09:27 AM EDT
--- OUTSIDE RECORDS SUMMARY | 2025-04-05 06:37 | XMS_ITS | Clinical Summary ---
Author Organization [facility] Address [address] [address] Phone Care Team Providers Care Apprenticeship Consultant Name Role Phone Sb Calvillo MD Primary Care Provider Allergies No known active allergies Medications FLUoxetine (PROZAC) 40 MG capsule Take 40 mg by mouth daily. Active hydrOXYzine (ATARAX) 25 MG tablet Take 25 mg by mouth 3 (three) times a day as needed for itching. Active Social History Tobacco Use Types Packs/Day Years Used Date Smoking Tobacco: Never Smokeless Tobacco: Never Alcohol Use Standard Drinks/Week Comments Not Asked 0 (1 standard drink = 0.6 oz pur e alcohol) Education Answer Date Recorded Are you interested in more education? Not on jay e 12/18/2022 Are you concerned about learning? Not on file 12/18/2022 No 12/18/2022 No 12/18/2022 Digital Access Answer Date Recorded No 01/04/2023 No 01/04/2023 No 01/04/2023 Reliable internet access at home? Not on file 01/04/2023 Device with a working camera? Not on file Sex and Gender Information Value Date Recorded Sex Assigned at Not on file Legal Sex Male 6:53 PM EST Gender Identity Not on file Sexual Orientation Not on file Plan of Treatment Health Maintenance Due Date Last Done Comments Adult Td,Tdap Booster 1962 LIPID PANEL 1962 DEPRESSION SCREENING 1974 SMOKING Hx and SMOKELESS TOBACCO SCREENING 1975 HEPATITIS C SCREENING 1980 HIV ONE-TIME SCREENING (18-6 5 YEARS) 1980 COLOGUARD 2007 COLONOSCOPY 2007 COLORECTAL CANCER SCREENING 2007 FIT TEST 2007 FOBT 2007 SIGMOIDOSCOPY 2007 VIRTUAL COLONOSCOPY 2007 PNEUMOCOCCAL VACCINES (50+ years) (1 of 1 - PCV) 2012 COVID-19 VACCINE (3 - 2023-2 5 season) 2024 02/09/2021, 01/12/2021 INFLUENZA VACCINE (#1) 2025 8, 06/21/2014 RSV VACCINE (1 - 1-dose 75+ series) 2037 ZOSTER VACCINES Completed 08/22/2020, 03/12/2020 HEPATITIS A VACCINES Aged Out No long er eligible based on patient's age to complete this topic HIB VACCINES Aged Out No longer eligi ble based on patient's age to complete this topic MENINGOCOCCAL VACCINES (ACWY) Aged Out No longer eligible based on patient's age to complete this topic MENINGOCOCCAL VACCINES (B) Aged Out N o longer eligible based on patient's age to complete this topic Medical Devices Not on file Insurance OrderAhead PPO OrderAhead PPO GRIM PPO GRIM PPO PILGRIM PPO [place] PPO PILGR[place] PPO P[facility]GR[facility] PPO [facility] PPO Care Teams Apprenticeship Consultant Relationship Specialty Start Date End Date Sb Calvillo MD PCP - General 12/14/14 Additional Source Comments The information contained in this document represents components of the legal health record. It is not the complete legal health record.[facility]
[2025-04-05] MEDS: Barium Sulfate Oral (Vanilla) 450 ML ORAL.SUSP 900 ML PO (09:21)
[2025-04-05] MEDS: iohexoL 350 MG/ML 100 ML INFUS..BTL IV (09:21)
[2025-04-05 16:44] LABS: Creatinine POC 0.9 mg/dL (0.5-1.4); GFR POC > 60
== END 2025-04-05 06:33 | disposition home or self-care (01) ==
LOC: HO.CT 06:32
PROVIDERS: PCP Internal Medicine; Visit Provider Physician Assistant Medical
DX: R10.32 Left lower quadrant pain (principal); K59.00 Constipation, unspecified
CPT/HCPCS: 74177; 82565; Q9967

== ENCOUNTER → 2025-04-05 06:36 | Outpatient (BNV) | payer BC, SELFPAY | PROVIDERS: PCP Internal Medicine; Visit Provider Radiology Diagnostic Radiology | DX: R10.32 Left lower quadrant pain (principal) | CPT/HCPCS: 74177 ==

== ENCOUNTER 2025-05-09 15:08 | Outpatient (AMB) | payer BC, SELFPAY ==
[2025-05-09 15:11] VITALS: BP 109/55; PULSE 62; RESP 16; TEMP 36.4; O2SAT 98; BMI 32.0
--- NOTE | 2025-05-09 15:11 | A.OFFPC_ITS ---
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 Accompanied by: Self / Same As Patient Allergies demeral Allergy (Mild, Uncoded 05/09/25 15:11) Itching Tobacco use date assessed: 05/09/25 Dental Screening Dental Screen Date: 11/01/24 COUNT INCLUDES THE [facility] Medical History Preventative health care Constipation LLQ abdominal pain Arthritis Upper respiratory infection Obesity (BMI 35.0-39.9 without comorbidity) Paroxysmal atrial fibrillation Afib Hx of basal cell carcinoma Surgical History History of esophagogastroduodenoscopy (EGD) Hx of knee surgery Hx of carpal tunnel repair Hx of rectal sphincterotomy Hx of colonoscopy (~12/10/23) Family History Paternal Uncle Colon cancer Father Prostate cancer Social History Household Members Other:: - adult children Housing: House Alcohol intake: former Patient Tobacco Use Status: Former Tobacco user Second Hand Smoke Exposure: No service: No Current occupational status: employed Current occupation: [employer] Cognitive needs: No Hearing needs: No Vision needs: Yes (rx glasses) Questionnaire PHQ-9 Over the last 2 weeks, how often have you been bothered by any of the following problems? 1. Little interest or pleasure in doing things: not at all 2. Feeling down, depressed, or hopeless: not at all 3. Trouble falling or staying asleep, or sleeping too much: not at all 4. Feeling tired or having little energy: not at all 5. Poor appetite or overeating: not at all 6. Feeling bad about yourself - or that you are a failure or have let yourself or your family down: not at all 7. Trouble concentrating on things, such as reading the newspaper or watching television: not at all 8. Moving or speaking so slowly that other people could have noticed. Or the opposite - being so fidgety or restless that you have been moving around a lot more than usual: not at all 9. Thoughts that you would be better off or of hurting yourself in some way: not at all Total score: 0 Depression Screening Interpretation: Negative Depression Screening Done: Yes 01526 - PHQ-9 Billing: Yes Source: Developed by Drs. Shekhar Gilmore, Tiffany Elliott, Flakito Guzman and colleagues, with an educational patric from [employer]. Thrive Questionnaire Date Thrive assessed: 12/26/24 I am a: Patient What is your living situation today?: I have a steady place to live Within the past 12 months, did the food you bought not last and you didn't have the money to get more?: Never true Within the past 12 months, did you worry whether your food would run out before you got money to buy more?: Never true Do you have trouble paying for medicines?: No Do you have trouble getting transportation to medical appointments?: No Do you have trouble paying your heating and electricity bill?: No Do you have trouble taking care of your child, family member or friend?: No Do you have trouble with day-to-day activities such as bathing, preparing meals, shopping, managing finances, etc.?: No Are you currently unemployed and looking for a job?: No Are you interested in more education?: No Please select the resources that you would like help with: None THRIVE Score: 0 AUDIT C Alcohol Use Questionnaire (AUDIT-C) 1. How often do you have a drink containing alcohol?: Never 3. How often do you have six or more drinks on one occasion?: Never Total Score: 0 Score Reviewed/Action Taken: No URI-7 AMB Questionnaire URI-7 Date URI - 7 assessed: 12/26/24 Feeling nervous, anxious, or on edge: 0 = Not at all Not being able to stop or control worryin = Not at all Worrying too much about different things: 0 = Not at all Trouble relaxin = Not at all Being so restless that it is hard to sit still: 0 = Not at all Becoming easily annoyed or irritable: 0 = Not at all Feeling afraid as if something awful might happen: 0 = Not at all Total URI-7 score (0-4 normal; 5-9 mild; 10-14 moderate; 15-21 severe): 0 Source: Developed by Drs. Shekhar Gilmore, Tiffany Elliott, Flakito Guzman and colleagues, with an educational patric from [employer]. URI-7 Assessment Billing URI-7 Assessment Tool: URI-7 Assessment 82531 Physical exam (Primary Care) Vital Signs: Last Vital Signs Temp 97.6 F 05/09/25 15:11 Pulse 62 05/09/25 15:11 Resp 16 05/09/25 15:11 BP 109/55 L 05/09/25 15:11 Pulse Ox 98 05/09/25 15:11 Oxygen Delivery Method Room Air 05/09/25 15:11 BMI result Body Mass Index 32.0 Tobacco/Smoking Status: Tobacco use Status Tobacco use date assessed 05/09/25 05/09/25 15:12 Patient Tobacco Use Status Former Tobacco user 05/09/25 15:12 PHQ-9: PHQ-9 Score PHQ-9: Total score 0 05/09/25 15:12 Depression Screening Interpretation: Negative Thrive Assessment: Date of Thrive Assessment Date Thrive assessed 12/26/24 05/09/25 15:12 Coding Level of Care Code Est Pt Level 4 (81489) Complex EM visit Add On G2211 Diagnoses Acid reflux K21.9 Additional Codes URI-7 Assessment Billing - URI-7 Assessment Tool: URI-7 Assessment 71663 ([id number]) PHQ-9 - 60974 - PHQ-9 Billing: Yes ([id number]) Assessment & Plan Assessment & Plan (1) Acid reflux: Comment: Fairly new onset acid reflux-warrants further evaluation Code(s): K21.9 - Gastro-esophageal reflux disease without esophagitis Category: Medical Plan: History of Present Illness - The patient is a 64-year-old male presenting with constipation. - Reports difficulty in bowel movements without laxatives, with intervals of three to four days without defecation. - Despite a fiber-rich diet and psyllium husk use, constipation persists. - On a regimen of laxatives, including MiraLAX, with varying frequency and dosage, but still experiences constipation when not using them. - Previous tests, including blood work, stool sample, and ultrasound, showed no abnormalities, advised to continue laxative use. - Family history of colon cancer, with a paternal uncle from the disease, and possible colon issues in the paternal grandmother. - Underwent three colonoscopies at ages 52, 57, and 62, all normal, but a five- year recall was recommended due to twisting and pockets observed during the first colonoscopy. - Reports discomfort during urination, particularly when the bladder is nearly empty, a new symptom in the past month. - Taking flecainide for atrial fibrillation for approximately a year and a half, which can cause constipation. - Lost 84 pounds, attributing the weight loss to dietary changes and custom shoe inserts for knee pain relief. 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 - Weight management: Lost 84 pounds through dietary changes and use of custom shoe inserts for knee pain relief. Review of Systems - Gastrointestinal: Reports constipation requiring laxatives, denies abdominal pain or discomfort. - Genitourinary: Reports discomfort during urination when bladder is nearly empty, denies pain. - Cardiovascular: Denies chest pain or palpitations. Physical Exam General: Cooperative and healthy appearing Nutritional Appearance: Well nourished Orientation/consciousness: Patient oriented x3 Limitations: No limitations Head: Normal to inspection General: Appearance normal, both eyes and all related structures Neck: Normal visual inspection Chest: Normal palpation of entire chest wall Respiratory: Normal respiratory effort Neurology: Patient oriented x3 Results - Labs: Blood work and stool sample showed no abnormalities. - Imaging: Ultrasound indicated no abnormalities. Plan - Recommend gastroenterology consultation for repeat colonoscopy to rule out polyps or other causes of constipation. - Continue current laxative regimen as needed to manage constipation. - Monitor urinary symptoms and consider urinalysis to evaluate discomfort during urination. Discussion Notes I discussed with the patient the likely age-related nature of his constipation and the importance of ruling out any obstructive causes through a repeat colonoscopy. We talked about the potential side effects of his current medi cations, including flecainide, which may contribute to constipation. I recommended continuing the current laxative regimen and monitoring urinary symptoms, with a possible urinalysis to evaluate discomfort during urination. We agreed on the need for a gastroenterology consultation to ensure comprehensive evaluation and management. Patient Instructions - Continue taking laxatives as needed to manage constipation. - Schedule a gastroenterology appointment for a colonoscopy. - Monitor any changes in urinary symptoms and report them during the next visit. Orders: Orders UA and rflx microscopic 05/09/25 K21.9 - Gastro-esophageal reflux disease without esophagitis Medications: New docusate sodium (Colace) 100 mg PO BID 60 caps 0RF
--- OUTSIDE RECORDS SUMMARY | 2025-05-09 16:29 | XMS_ITS | Data Portability ---
Author Organization [facility], YING Blair PT Address [address] [place] [address] Assessment No assessment recorded. Plan of Treatment Reminders Order Date Submit Date Provider Last Modified By Organization Details Last Modified Time Details Appointments None record ed. Lab None record ed. Referral None record ed. Procedures None record ed. Surgeries None record ed. Imaging XR, knee, 4 or more view 025 01/07/20 [email or web address] [facility], [address] [facility], [address], [address], 5 11:20:27 Medication Orders None record ed. [...] a4ajBk vP9nXo QUaueC m3YtLR FvZlgJ JJ8mAn HZtai3 3c7327 AC0Kla 3qNVaa gKiQtr MwF INTERFACE [facility] [address], [place], [address], 01/06/2025 15:07:56 01/07/20 25 01/06/2025 XR, knee, 4 or more view http:/ [email or web address] ?Encry pted=s hAaTro YD8dLq bEUv6g %2BXZw aYqtaq 0bqfl% 2Fg9IQ a4ajBk vP9nXo QUaueC m3YtLR FvZlgJ JJ8mAn HZtai3 9c9075 AC0Kla 3qNVaa gKiQtr MwF INTERFACE [facility] [address] [facility] [address], [place], [address], 01/06/2025 15:07:57 Result Notes Documentation Provider Name and Address Organization Details Recorded Time Xr, Knee, 4 Or More View : [email or web address]? Encrypted=ukQiQenTI5zIndT Uv6g%6WTXikJxxbj5jjry%2Fg 8CTc5baMhrS5tVkQKjokQy7Wu LVWnVgoCIY9uXxMLbqu00x419 0MP5Zye8gHRqfdCrStlDsS Not Available Critical access hospital 01/06/2025 15:07: 56 Xr, Knee, 4 Or More View : [email or web address] Encrypted=qkEnXxyYI0zIbdR Uv6g%7SZZsfPjuyw0ojqj%2Fg 1KMm5uzQpsI5zHvEPdnqEf8Ov YRAkJjtDBP5oBkDRgkl60y158 4GT1Ytz9lJLfdbXhNibDoY Not Available [facility] hospital 01/06/2025 15:07: 57 Problems Name Problem SNOMED Code Status Onset Date Resolution Date Notes Provider Name and Address Organization Details Recorded Time Osteoarthri tis of right knee joint 8673225578924 00 Active 2024 Jeannie Jauregui PA-C [address] [facility] [address], [place], [address], [facility] 15:40:59 Problem Notes None recorded. Procedures Surgical History Date Name Laterality Status Provider Name and Address Organization Details Recorded Time Sports Knee 4&1 completed Jeannie Jauregui PA-C [address], [place], [address], [facility] 01/06/2025 15:40:52 JZTrigger Finger Injection completed Annette Redmond PA-C [address], [place], [address], [facility] 11/23/2024 13:53:31 Imaging Results None recorded. Procedure Notes None recorded. Medical Equipment None Reported. Allergies Allergen ID Allergen Name Allergen Category Reaction Reaction Severity Criticality Documentation Date Start Date Code Code System Note Provider Name and Address Organization Details Recorded Time 266672 acetamino phen / hydrocodo ne medicatio n Not available Not available Not available 11/23/2024 21242 2 RxNorm JAS VIERA [facility] 13:16:15 Medications Name Sig Start Date Stop [...] Updated DateTime 11/23/2024 190.5 cm 39.4 kg/m2 615543.6 g JAS VIERA [facility] 11/23/2024 13:16:08 Date Recorded Body height Body mass index (BMI) Body weight Provider Name and Address Organization Details Last Updated DateTime 01/06/2025 190.5 cm 36.1 kg/m2 446479.19 g Veronica givens [facility] 01/06/2025 15:00:08 Social History None recorded. Functional Status None recorded. Mental Status None recorded. Family History Nothing Reported. Medical History No medical history recorded. Past Encounters Encounter ID Performer Location Encounter Start Date Encounter Closed Date Diagnosis/Indication Diagnosis SNOMED-CT Code Diagnosis ICD10 Code Diagnosis IMO Codes Diagnosis Note [id number] AURA Buchanan [address] [place] [address] 11/23/2024 12:55:38 12/13/2024 09:02:04 [id number] AURA Rivas [facility] [address] [place] [address] 01/06/2025 14:32:18 01/24/2025 15:47:32 Pain of right knee joint 6242022421 95360 M25.561 365608 Osteoarthr itis of right knee joint 6306166568 45803 M17.11 [id number] Reviewed patient's imaging and exam findings in [...] Recorded Advance Directives Directive None Recorded Payers Insurance Date Sequence Insurance Name Policy Number Policy Julien Covered Member ID Julien Member ID Guarantor Name 01/24/2025 1 [facility] [id number] Raymundo Fields [id number] Raymundo Fields Notes Date Note Type Note Provider Name and Address Organization Details Recorded Time 11/23/2024 text/html I am seeing the patient today under the supervision of dr Olivo who was available but who did not see the patient. DX: Flexor tenosynovitis left ring fingerFlexor tenosynovitis right ring fingerhistory of bilateral carpal [place] index middle and ring fingers in [place] HPI: 64-year-old male here for orthopedic consultation. [...] by me and is located in the patient s chart. Examination: Alert and oriented 3. No acute distress. Nonantalgic gait bilateral ring finger reveals no soft tissue swelling, erythema, or ecchymosis. Tender nodule over the A1 dl region, no audible click or snap noted. Has decent range of motion. Sensation is intact, 1+ capillary refill, 2+ radial pulse. X-rays ordered, obtained and reviewed at [facility] none Impression/Plan:Findi ngs and situation discussed with patient. Recommended cortisone injection. Under aseptic technique, 40 mg of Kenalog-40 injected into the A1 dl region of the bilateral ring finger. The patient tolerated the procedure well. Postinjection precautions were discussed. Will follow up in six weeks if no improvement. Provided with a trigger finger handout. Annette Redmond PA-C [address] [facility] [address] [facility], [place], [address], [facility] 11/23/2024 13:53:47 01/06/2025 text/html ROS as noted in the HPI I am seeing the patient under the [...] reviewed by myself during today's visit at [facility] and demonstrate well-preserved tibiofemoral joint spaces. Mild far patellofemoral joint space narrowing noted on lateral merchant views with large lateral patellar osteophyte on the right knee noted. Impression: Moderate right knee patellofemoral osteoarthritis Jeannie Jauregui PA-C [address] [facility] [address], [place], [address], [facility] 01/06/2025 15:42:15
--- OUTSIDE RECORDS SUMMARY | 2025-05-09 16:29 | XMS_ITS | Clinical Summary ---
Author Organization [facility] Address [address] [address] Phone Care Team Providers Care Supervisor Incising Name Role Phone Sb Calvillo MD Primary [...] years) (1 of 1 - PCV) 2012 INFLUENZA VACCINE (#1) 2025 8, 06/21/2014 COVID-19 VACCINE (3 - 2024-2 6 season) 2025 02/09/2021, 01/12/2021 RSV VACCINE (1 - 1-dose 75+ series) [...] topic Medical Devices Not on file Insurance [employer] PPO [employer] PPO GRIM PPO GRIM PPO PILGRIM PPO [employer] PILGRIM PPO PILGRIM PPO PILGRIM PPO [facility] PPO Care Teams Supervisor Incising Relationship Specialty Start Date End Date Sb Calvillo MD PCP - General 12/14/14 Additional Source Comments The information contained in this document represents components of the legal health record. It is not the complete legal health record.[facility]
== END 2025-05-09 15:55 | disposition home or self-care (01) ==
LOC: HO.HMCSH 15:08
PROVIDERS: PCP Internal Medicine; Visit Provider Internal Medicine
DX: K21.9 Gastro-esophageal reflux disease without esophagitis (principal)

== ENCOUNTER → 2025-05-09 15:08 | Outpatient (BNVA) | payer BC, SELFPAY | PROVIDERS: PCP Internal Medicine; Visit Provider Internal Medicine | DX: K21.9 Gastro-esophageal reflux disease without esophagitis (principal); K59.00 Constipation, unspecified | CPT/HCPCS: 96127 ==

== ENCOUNTER 2025-07-25 15:26 | Outpatient (AMB) | payer BC, SELFPAY ==
[2025-07-25 15:33] VITALS: BP 108/62; PULSE 68; BMI 31.7
--- NOTE | 2025-07-25 15:33 | A.OFFVIS_ITS ---
Vital Signs 07/25/25 15:33 Height 6 ft 3 in Weight 253 lb 8.505 oz BMI 31.7 BP 108/62 Blood Pressure Location Lt brachial Position Sitting Pulse 68 Intake Visit Reasons: colo screening Intake Note: Raymundo presents in the office as a colonoscopy screening. CC: States that he had a check up and this is a cross examination to see what is going on with him. Osteobiflex gave him constipation - seen his PCP and states that he stopped the osteobiflex but then he had an issue because he needed laxatives to have a BM. Seen blockage in an ultrasound. Cleared himself out and was back to constipation. Every other day he does a laxative tea to help with his BM and every day he takes a stool softener. 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 Referred by PCP for pre colonoscopy screening. Pt presents for ongoing constipation and irregular BMs that began after starting OTC joint supplement several months ago, associated with prolonged intervals between BMs (up to 10-14 days) unless using laxatives or stool softeners. Initial regimen (Colace + possible Senna, Dulcolax) temporarily normalized stools, but constipation recurred off meds. Pt required repeat bowel cleanouts. Over past ~2 weeks, bowel regimen with evening stool softener (Colace) and laxative tea q3d has led to more regular, formed BMs x3 consecutive days, with gradual resolution of prior stool impaction. Maintains high activity level at work and home, recently increased physical activity. Denies recent hospitalizations, GI flares, or ED visits. Appetite is good, >90 lb intentional wt loss d/t IF and dietary changes since November; no dysphagia. Patient denies: fever/chills, n/v, appetite changes, regurgitation,dysphasia, unintentional wt loss, ab pain or melena/hematochezia. 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 -denies recreational drug use -former smoker, cessation 4 years ago - family hx as below -tolerated anesthesia in the past difficulty PFSH Medical History Preventative health care Constipation LLQ abdominal pain Arthritis Upper respiratory infection Obesity (BMI 35.0-39.9 without comorbidity) Paroxysmal atrial fibrillation Afib Hx of basal cell carcinoma Surgical History History of esophagogastroduodenoscopy (EGD) Hx of knee surgery Hx of carpal tunnel repair Hx of rectal sphincterotomy Hx of colonoscopy (~12/10/23) Family History Paternal Uncle Colon cancer Father Prostate cancer Social History Household Members Other:: - adult children Housing: House Alcohol intake: former Patient Tobacco Use Status: Former Tobacco user Second Hand Smoke Exposure: No service: No Current occupational status: employed 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 Cognitive needs: No Hearing needs: No Vision needs: Yes (rx glasses) Review of Systems Const Reports as per HPI ENT Reports as per HPI Card Reports as per HPI Resp Reports as per HPI GI Reports as per HPI Reports as per HPI Physical Exam Vital Signs: Last Vital Signs Pulse 68 07/25/25 15:33 BP 108/62 07/25/25 15:33 BMI result Body Mass Index 31.7 Const General: healthy appearing, no acute distress and well developed Nutritional Appearance: average body habitus Orientation/consciousness: patient oriented x3 HEENT Head: Yes normal to inspection, Yes normocephalic and Yes atraumatic Face and sinus: Yes normal facial exam Eyes General: appearance normal, both eyes and all related structures Neck Neck: Yes normal visual inspection Resp Effort & Inspection: normal respiratory effort, able to speak in complete sentences, no tracheal deviation and symmetric chest movement Cardio Jugular venous distension: no JVD GI Inspection: Yes normal to inspection, No distended and Yes obesity Palpation (GI): Soft to palpation, not firm, nontender and No hepatosplenomegaly present Auscultation: normoactive bowel sounds Neuro General: patient oriented x3 Gait exam (Neuro): Normal gait present Psych Appearance: grossly normal Mental Status: mental status grossly normal Speech and movement: Normal speech and movement present Affect: normal affect Attitude: cooperative Thought process: Normal thought process present Thought content: Normal thought content present Insight: Good insight present (Psych) Judgement: Good judgement present (Psych) Results Reviewed Results Reviewed: Date of Service: 04/05/25 Procedure(s): CT abdomen pelvis w IV con Accession Number(s): [id number] cc: Jina Marroquin PA-C; Bruce Ray MD~ Report Number: [id number]: Total DLP = 639.00 mGy-cm EXAMINATION: CT ABDOMEN PELVIS WITH IV CONTRAST HISTORY: R10.32 - Left lower quadrant pain COMPARISON: There are no prior studies for available comparison. TECHNIQUE: CT scan of the abdomen and pelvis was performed following administration of 85 mL Omnipaque 350 using standard departmental protocol. Coronal and sagittal reformatted images were generated and reviewed. The patient received oral contrast material. This CT exam was performed with one or more of the following dose reduction techniques: automated exposure control, adjustment of the mA and/or kV according to patient size, use of iterative reconstruction technique. DLP: 639 mGy-cm FINDINGS: LOWER CHEST: The visualized lung bases are clear. There is no pleural effusion. CARDIOVASCULATURE: The heart is normal in size. There is no pericardial effusion. LIVER: The liver is normal in size and contour. There is a 10 mm probable cyst in segment IV. The hepatic and portal veins are patent. GALLBLADDER / BILE DUCTS: The gallbladder is unremarkable. There is no intra or extrahepatic biliary ductal dilatation. SPLEEN: The spleen is normal in size. No focal splenic lesion is identified. PANCREAS: The pancreas is unremarkable in appearance. ADRENAL GLANDS: Within normal limits. KIDNEYS/RETROPERITONEUM: No renal calculi are identified. There is no hydronephrosis. There is a 4.2 cm cyst at the upper pole of the right kidney and a 2.2 cm cyst at the lower pole. LYMPH NODES: No abdominal or pelvic lymphadenopathy. VASCULATURE: The abdominal aorta demonstrates atherosclerotic calcification, but is normal in caliber. MESENTERY/PERITONEUM: No free fluid. No masses. There is no free intraperitoneal gas. STOMACH: The stomach is unremarkable. SMALL BOWEL: The small bowel is normal in caliber. COLON: There is a large amount of stool throughout the colon. APPENDIX: Normal. URINARY BLADDER/PELVIC ORGANS: The urinary bladder is unremarkable. The prostate is normal in size. BONES / SOFT TISSUES: There is degenerative disc disease of the spine. CT/CT abdomen pelvis w IV con IMPRESSION: Large amount of stool throughout the colon. Operative Note Date of Service: 12/10/23 Narrative: Operative Information Procedure Description: EGD, Colonoscopy Indication: GERD, Colon screening Anesthesia: MAC FLEXIBLE TRANSORAL UPPER GASTROINTESTINAL ENDOSCOPY AND COLONOSCOPY PROCEDURE NOTE UPPER ENDOSCOPY Consent: Indications for the procedure and potential complications of bleeding, perforation, reaction to medications and missed diagnosis were discussed with the patient and informed consent was obtained. Instrument: Olympus GIF H 190 J mid size upper endoscope Monitoring: Vital signs and clinical assessment, continuous EKG monitoring, Pulse oximetry, Carbon Dioxide monitoring and blood pressure monitoring were done throughout the procedure. Procedure: The patient was placed in the left lateral decubitis position and pre-procedure medications were administered and a bite block was placed. The endoscope was inserted into the mouth and advanced under direct vision to the third part of duodenum. A careful inspection was made as the upper endoscope was withdrawn including a retroflexed examination of the proximal stomach; Findings and interventions are described below. Findings: Larynx:normal Esophagus: GE junction at 40 cm, diaphragm hiatus at 40 cm, some bogginess and erythema at GEJ, bx taken Stomach: erythema around pylorus with few small erosions. Biopsies were obtained. Grade 2 flap valve on retroflexed examination of the cardia. Duodenum: Normal bulb and descending duodenum, Intervention: Biopsies as noted above, COLONOSCOPY Instrument: Olympus variable stiffness ADULT scope 190L Colonoscopy Monitoring: Vital signs and clinical assessment, continuous EKG monitoring, Pulse oximetry, Carbon Dioxide monitoring and blood pressure monitoring were done throughout the procedure. Colon withdrawal time was 11 minutes. Procedure: The patient was placed in the left lateral decubitis position and pre-procedure medications were administered. After a digital rectal examination of the ano-rectum, the video colonoscope was inserted into the rectum and advanced through the colon to the cecum/TI. The colonoscope was slowly withdrawn in a retrograde panoramic fashion and the colon mucosa was carefully examined including a retroflexed view of the rectum. Findings and interventions are described below. Procedure Difficulty:moderate Findings: Terminal Ileum-normal Cecum:normal Ascending Colon: normal Transverse Colon -normal Descending Colon:normal Sigmoid Colon: normal Rectum: Retroflexion with small internal hemorrhoids, grade I Anorectum - normal Colon preparation: [place] Bowel Preparation Scale Right colon; 2 Transverse colon: 2 Left colon; 1-2 (0 = Unprepared colon segment with mucosa not seen due to solid stool that cannot be cleared. 1 = Portion of mucosa of the colon segment seen, but other areas of the colon segment not well seen due to staining, residual stool and/or opaque liquid. 2 = Minor amount of residual staining, small fragments of stool and/or opaque liquid, but mucosa of colon segment seen well. 3 = Entire mucosa of colon segment seen well with no residual staining, small fragments of stool or opaque liquid) Impression and Post Procedure Diagnosis: Endoscopy Findings: esophagitis mild gastritis Colonoscopy Findings: internal hemorrhoids fair prep Plan: Await Pathology results Repeat Colonoscopy in 5 years due to prep or earlier if clinically indicated High fiber diet leaflet avoid straining at stool, epsom salts and sitz bath, anusol supps or cream GERD precautions Above findings were reviewed with the patient and relevant handouts were provided if indicated. PATHOLOGY: Collected: 12/10/23 Location: [facility] Received: 12/10/23 Diagnosis A. Stomach, biopsy: Oxyntic mucosa within normal limits; no Helicobacter organisms seen. B. GE junction, biopsy: - Cardiofundic-type mucosa with mild chronic inactive inflammation; no intestinal metaplasia seen. - Squamous epithelium within normal limits. Clinical History Pre-Op Dx: Screening, GERD Post-Op Dx: Gastritis, internal hemorrhoids Assessment & Plan Assessment & Plan (1) Constipation: Code(s): K59.00 - Constipation, unspecified Category: Medical Qualifiers: Constipation type: drug induced constipation Qualified Code(s): K59.03 - Drug induced constipation Plan: Improving; transition from severe constipation requiring routine laxatives to more regular BMs qd-qod, notably past 2wks. Passing formed stool, no pain or blood.imaging w/o obstruction. Additional Testing: - X-ray KUB: ordered to assess for residual stool burden and guide need to escalate bowel regimen. Medications: - Continue Colace (docusate) qhs. - Continue use of stimulant laxative tea (Senna) prn but limit to q3d unless recommended otherwise. - Miralax (PEG) daily may be initiated if X-ray shows persistent stool burden or if sxs recur. Lifestyle Recommendations: - Continue high-fiber diet, maintain >6-8 glasses water daily, continue hot/room temp water intake as tolerated. - Continue regular physical activity (walking, stationary bike, occupational activity). - Minimize use of constipating agents/supplements. - Given intermittent fasting and high-protein diet, ensure balance with plant- based fiber/beans/vegetables at each meal. - Provided education regarding regularity expectations and when to call for alarm sxs (hematochezia, persistent pain, vomiting, unintentional wt loss). Referrals / Coordination of Care: - None at this time; barium enema only if sxs persist or further anatomic clarification needed. Follow-Up Plan: - Routine: f/u office visit in 4 wks (after holidays/early Aug), or sooner if sxs worsen/fail to improve. - Radiology: X-ray KUB to be completed at pt convenience; results to be discussed by phone prior to next visit. Escalate bowel regimen if persistent stool burden. Plan Follow-up in 4 weeks or sooner as needed Time: I spent a total of 30 minutes on the date of encounter which includes: Preparing to see the patient (reviewed previous documentation, test results and medical history) Performing a medically appropriate exam and/or evaluation Ordering medications, tests, and procedures Documenting clinical information in the health record Orders: Orders XR KUB Today K59.00 - Constipation, unspecified Coding Level of Care Code New Pt New Pt Level 3 (69232) Patient Type New Diagnoses Drug-induced constipation K59.03 Constipation type: drug induced constipation
--- OUTSIDE RECORDS SUMMARY | 2025-07-25 19:39 | XMS_ITS | Data Portability ---
Author Organization [facility], YING Blair PT Address [address] [place] [address] Assessment No assessment recorded. Plan of Treatment Reminders Order Date Submit Date Provider Last Modified By Organization Details Last Modified Time Details Appointments None record ed. Lab None record ed. Referral None record ed. Procedures None record ed. Surgeries None record ed. Imaging XR, knee, 4 or more view 025 01/07/20 [email or web address] [facility] Office, [address] [facility], [address], [address], 5 11:20:27 Medication Orders None record ed. [...] a4ajBk vP9nXo QUaueC m3YtLR FvZlgJ JJ8mAn HZtai3 [id number] AC0Kla 3qNVaa gKiQtr MwF INTERFACE [facility] [address], [place], [address], 01/06/2025 15:07:56 01/07/20 25 01/06/2025 XR, knee, 4 or more view http:/ [email or web address] ?Encry pted=s hAaTro YD8dLq bEUv6g %2BXZw aYqtaq 0bqfl% 2Fg9IQ a4ajBk vP9nXo QUaueC m3YtLR FvZlgJ JJ8mAn HZtai3 4u1763 AC0Kla 3qNVaa gKiQtr MwF INTERFACE [facility] [address] [facility] [address], [place], [address], 01/06/2025 15:07:57 Result Notes Documentation Provider Name and Address Organization Details Recorded Time Xr, Knee, 4 Or More View : [email or web address] Encrypted=daZrCnpOH2lZqzK Uv6g%8SPWieDalcv8ahis%2Fg 0HMm9jkMmhD3bAqRVajnTv7Gy VPVjLxwPYP3oZkCUeha74o075 9KP8Ese0fGPkvhChTeaJyX Not Available [facility] 01/06/2025 15:07: 56 Xr, Knee, 4 Or More View : [email or web address] Encrypted=xoRbSkqUO8gCaiZ Uv6g%3MKRtzHgskk8ywof%2Fg 5UXl5urMulH5nTnTGxrqXy0Pv JVXsVzcMWO4bEaFOjcm53k041 5WD8Lph4dTSjsmMeMrbCmD Not Available [facility] 01/06/2025 15:07: 57 Problems Name Problem SNOMED Code Status Onset Date Resolution Date Notes Provider Name and Address Organization Details Recorded Time Osteoarthri tis of right knee joint 6452517891813 00 Active 2024 Jeannie Jauregui PA-C [address] [facility] [address], [place], [address], [facility] 15:40:59 Problem Notes None recorded. Procedures Surgical History Date Name Laterality Status Provider Name and Address Organization Details Recorded Time Sports Knee 4&1 completed Jeannie Jauregui PA-C [address], [place], [address], [facility] 01/06/2025 15:40:52 JZTrigger Finger Injection completed Annette Redmond PA-C [address], [place], [address], [facility] 11/23/2024 13:53:31 Imaging Results None recorded. Procedure Notes None recorded. Medical Equipment None Reported. Allergies Allergen ID Allergen Name Allergen Category Reaction Reaction Severity Criticality Documentation Date Start Date Code Code System Note Provider Name and Address Organization Details Recorded Time 653917 acetamino phen / hydrocodo ne medicatio n Not available Not available Not available 11/23/2024 59797 2 RxNorm JAS VIERA [facility] 13:16:15 Medications Name Sig Start Date [...] Updated DateTime 11/23/2024 190.5 cm 39.4 kg/m2 047354.6 g JAS VIERA [facility] 11/23/2024 13:16:08 Date Recorded Body height Body mass index (BMI) Body weight Provider Name and Address Organization Details Last Updated DateTime 01/06/2025 190.5 cm 36.1 kg/m2 765381.19 g Veronica givens [facility] 01/06/2025 15:00:08 Social History None recorded. Functional Status None recorded. Mental Status None recorded. Family History Nothing Reported. Medical History No medical history recorded. Past Encounters Encounter ID Performer Location Encounter Start Date Encounter Closed Date Diagnosis/Indication Diagnosis SNOMED-CT Code Diagnosis ICD10 Code Diagnosis IMO Codes Diagnosis Note [id number] [facility] [address] [place] [address] 11/23/2024 12:55:38 12/13/2024 09:02:04 [id number] [facility] Rivas [facility] [address] [place] [address] 01/06/2025 14:32:18 01/24/2025 15:47:32 Pain of right knee joint 7308773364 55232 M25.561 334198 Osteoarthr itis of right knee joint 3035477172 25276 M17.11 [id number] Reviewed patient's imaging and exam findings in [...] Julien Member ID Guarantor Name 01/24/[address] [facility] [id number] Raymundo Fields [id number] Raymundo Fields Notes Date Note Type Note Provider Name and Address Organization Details Recorded Time 11/23/2024 text/html I am seeing the patient today under the supervision of dr Olivo who was available but who did not see the patient. DX: Flexor tenosynovitis left ring fingerFlexor tenosynovitis right ring fingerhistory of bilateral carpal tunnel syndrome [place] ten[place] left index middle and ring fingers in [place] HPI: 64-year-old male here for orthopedic consultation. [...] pulse. X-rays ordered, obtained and reviewed at [facility] none Impression/Plan:Findi ngs and situation discussed with patient. Recommended cortisone injection. Under aseptic technique, 40 mg of Kenalog-40 injected into the A1 dl region of the bilateral ring finger. The patient tolerated the procedure well. Postinjection precautions were discussed. Will follow up in six weeks if no improvement. Provided with a trigger finger handout. Annette Redmond PA-C [address] [facility] [address] [facility], [place], [address], [facility] 11/23/2024 13:53:47 01/06/2025 text/html ROS as [...] reviewed by myself during today's visit at [facility] and demonstrate well-preserved tibiofemoral joint spaces. Mild far patellofemoral joint space narrowing noted on lateral merchant views with large lateral patellar osteophyte on the right knee noted. Impression: Moderate right knee patellofemoral osteoarthritis Jeannie Jauregui PA-C [address] [facility] [address], [place], [address], [facility] 01/06/2025 15:42:15
--- OUTSIDE RECORDS SUMMARY | 2025-07-25 19:39 | XMS_ITS | Clinical Summary ---
Author Organization [facility] Address [address] [address] Phone Care Team Providers Care Recruitment Consultant Name Role Phone Sb Calvillo MD [...] topic Medical Devices Not on file Insurance [employer] PPO [employer] PPO GRIM PPO GRIM PPO PILGRIM PPO [place] PILGRIM PPO PILGRIM PPO PILGRIM PPO [facility] PPO Care Teams Recruitment Consultant Relationship Specialty Start Date End Date Sb Calvillo MD PCP - General 12/14/14 Additional Source Comments The information contained in this document represents components of the legal health record. It is not the complete legal health record.[facility]
== END 2025-07-25 16:19 | disposition home or self-care (01) ==
LOC: HO.HGI 15:27
PROVIDERS: PCP Internal Medicine; Visit Provider Nurse Practitioner Family
DX: K59.03 Drug induced constipation (principal)
CPT/HCPCS: 99203

== ENCOUNTER 2025-08-08 09:13 | Outpatient (REF) | payer BC, SELFPAY ==
--- NOTE | ~2025-08-08 | XR_ITS ---
EXAMINATION: XR ABDOMEN KUB CLINICAL INDICATION: K59.00 - Constipation, unspecified COMPARISON: Correlation made with CT abdomen and pelvis 04/05/2025. TECHNIQUE: AP view of the abdomen, supine. FINDINGS: Bowel gas pattern is normal/nonspecific. There is no focally dilated loop. There is extensive fecal material seen throughout the colon in keeping with constipation. No abnormal soft tissue calcifications. No organomegaly. No large abdominal mass. Lung bases appear clear. Degenerative changes noted throughout the spine. No suspicious bone lesion evident. XR/XR KUB IMPRESSION: Moderate constipation. No bowel obstruction. Electronically signed by: Candelario Ledesma MD 08/08/2025 09:41 AM [facility]
--- OUTSIDE RECORDS SUMMARY | 2025-08-08 11:39 | XMS_ITS | Clinical Summary ---
Author Organization [facility] Address [address] [place] [address] Phone Care Team Providers Care Director Online Marketing Name Role Phone Unavailable Primary Care Provider Unavailabl e Allergies Active Allergy Reactions Criticality Noted Date Comments Hydrocodone-Acetaminophen Itching High Social History Tobacco Use Types Packs/Day Years Used Date Smoking Tobacco: Never Assessed Sex and Gender Information Value Date Recorded Sex Assigned at Not on file Legal Sex Male 8:45 PM EDT Gender Identity Not on file Sexual Orientation Not on file Last Filed Vital Signs Vital Sign Reading Time Taken Comments Blood Pressure 114/68 10/28/2023 3:50 PM EDT Pulse 76 10/28/2023 3:50 PM EDT Temperature 36.2 C (97.2 F) 10/28/2023 3:00 PM EDT Respiratory Rate 15 10/28/2023 3:50 PM EDT Oxygen Saturation 97% 10/28/2023 3:50 PM EDT Inhaled Oxygen Concentration - - Weight 138.3 kg (305 lb) 10/28/2023 2:03 PM EDT Height 190.5 cm (6' 3 ) 10/28/2023 2:03 PM EDT Body Mass Index 38.12 10/28/2023 2:03 PM EDT Plan of Treatment Health Maintenance Due Date Last Done Comments HIV Lifetime Screening 1960 Hepatitis B Lifetime Screening 1962 Hepatitis C Antibody Lifetime Screening 1962 THRIVE SCREENING 1962 Oral Health Screen 01/19/1963 HEIP Disability Screen 1967 BEHAVIORAL HEALTH SCREEN 1974 Psych Substance Use Screen 1974 DTAP/TDAP VACCINE (1 - Tdap) 1981 Colonoscopy FOBT- Positive 2007 Colonoscopy 2007 Colorectal Cancer Screening 2007 FOBT 2007 Sigmoidoscopy 2007 Pneumonia Vaccine 50+ (1 of 1 - PCV) 2012 Zoster Vaccine (1 of 2) 2012 COVID-19 Vaccine (4 - season) 2025 09/23/2021, 02/09/2021, 01/12/2021 INFLUENZA VACCINE (#1) 2025 , 07/14/2018, 06/21/2014, Additional history exists Diabetes Screening 09/30/2025 09/30/2022 LIPID PANEL 09/30/2027 09/30/2022 RSV Immunization 60 Years and Older OR (1 - 1-dose 75+ series) 2037 HPV VACCINES Aged Out No longer eligi ble based on patient's age to complete this topic IPV VACCINES Aged Out No longer eligi ble based on patient's age to complete this topic MENINGOCOCCAL B Aged Out No longer el igible based on patient's age to complete this topic ROTAVIRUS VACCINES Aged Out No longer eligible based on patient's age to complete this topic Procedures Procedure Name Priority Date/Time Associated Diagnosis Comments LIPID PANEL (HISTORICAL) Routine 09/30/2022 11:00 AM EST HISTORICAL HEMOGLOBIN A1C WITH EAG Routine 09/30/2022 11:00 AM EST from Last 3 Months or Most Recently Relevant to Health Maintenance Results * (ABNORMAL) HEMOGLOBIN A1C WITH EAG (09/30/2022 11:00 AM EST) Hemoglobin A1c/Hemoglobin. total in Blood 5.8(H) <5.7 %_of_total _HGB CONV - MARÍA NAVARRO 09/30/2022 11:0 0 AM EST 09/30/2022 11:00 AM EST Narrative CONV - MARÍA RAMON - 09/30/2022 11:00 AM EST For someone without known diabetes, a hemoglobin A1c value between 5.7% and 6.4% is consistent with prediabetes and should be confirmed with a follow-up test. For someone with known diabetes, a value <7% indicates that their diabetes is well controlled. A1c targets should be individualized based on duration of diabetes, age, comorbid conditions, and other considerations. This assay result is consistent with an increased risk of diabetes. Currently, no consensus exists regarding use of hemoglobin A1c for diagnosis of diabetes for children. us Historical Project [facility] Provider LAB BLOOD [place]E [place] Edited Result - Final ERNESTINE NAVARRO * (ABNORMAL) Lipid Panel (Historical) (09/30/2022 11:00 AM EST) [facility] Cholesterol [Mass/volume] in Serum or Plasma 203(H) <200 mg/dL CONV - MARÍA RAMON Cholesterol in HDL [Mass/volume] in Serum or Plasma 40 > or = 40 mg/dL CONV - MARÍA RAMON Triglyceride [Mass/volume] in Serum or Plasma 235(H) <150 mg/dL CONV - MARÍA RAMON Comment:If a non-fasting spe cimen was collected, consider repeat triglyceride testing on a fasting specimen if clinically indicated. Sohan et al. J. of Clin. Lipidol. 2015;9:129-169. Cholesterol in LDL [Mass/volume] in Serum or Plasma by calculation 125(H) mg/dL_(ifeoma c) CONV - MARÍA RAMON Cholesterol.total /Cholesterol.in HDL [Mass ratio] in Serum or Plasma 5.1(H) <5.0 (calc) CONV - MARÍA RAMON Cholesterol non HDL [Mass/volume] in Serum or Plasma 163(H) <130 mg/dL_(ifeoma c) CONV - MARÍA RAMON Comment:For patients with di abetes plus 1 major ASCVD risk factor, treating to a non-HDL-C goal of <100 mg/dL (LDL-C of <70 mg/dL) is considered a therapeutic option. 09/30/2022 11:0 0 AM EST 09/30/2022 11:00 AM EST Narrative ERNESTINE - MARÍA NAVARRO - 09/30/2022 11:00 AM EST Reference range: <100 Desirable range <100 mg/dL for primary prevention; <70 mg/dL for patients with CHD or diabetic patients with > or = 2 CHD risk factors. LDL-C is now calculated using the Nathan calculation, which is a validated novel method providing better accuracy than the Friedewald equation in the estimation of LDL- C. Harris CORONA et al. LANCE. 2013;310(19): 0377-9409 (http://education.[employer]/faq/FWL099) us Historical Project [facility] Provider LAB BLOOD [place]E [place] Edited Result - Final ERNESTINE - MARÍA NAVARRO from Last 3 Months or Most Recently Relevant to Health Maintenance
--- OUTSIDE RECORDS SUMMARY | 2025-08-08 11:39 | XMS_ITS | Clinical Summary ---
Author Organization [facility] Address [address] [address] Phone Care Team Providers Care Prosthetics Technician Name Role Phone Sb Calvillo MD Primary [...] topic Medical Devices Not on file Insurance Ev[employer] PPO Ev[employer]v PPO GRIM PPO GRIM PPO PILGRIM PPO [place] PILGRIM PPO PILGRIM PPO PILGRIM PPO [facility] PPO Care Teams Prosthetics Technician Relationship Specialty Start Date End Date Sb Calvillo MD PCP - General 12/14/14 Additional Source Comments The information contained in this document represents components of the legal health record. It is not the complete legal health record.[facility]
== END 2025-08-08 09:14 ==
LOC: HO.XRAY 09:13
PROVIDERS: PCP Internal Medicine; Visit Provider Nurse Practitioner Family
DX: K59.00 Constipation, unspecified (principal)
CPT/HCPCS: 74018

== ENCOUNTER → 2025-08-08 09:19 | Outpatient (BNV) | payer BC, SELFPAY | PROVIDERS: PCP Internal Medicine; Visit Provider Radiology Diagnostic Radiology | DX: K59.00 Constipation, unspecified (principal) | CPT/HCPCS: 74018 ==